=== PATIENT | female | born 1985 | race Caucasian/White ===

== ENCOUNTER 2017-08-15 00:21 | Emergency (ER) | payer SELFPAY ==
--- NOTE | 2017-08-15 02:41 | ER ---
Nurse's Notes [facility] Name: Araceli Bledsoe Age: 32 yrs Sex: Female : 1985 Arrival Date: 08/15/2017 Time: 00:22 Bed 28 Private MD: Garrett Lechuga T Diagnosis: Acute pharyngitis Presentation: 08/15 00:59 Presenting complaint: Patient states: Sore Throat, difficulty swallowing x 3 days. fc Began taking Zithromax yesterday after seeing physician and being diagnosed with strep throat. Sore throat continues to worsen. Transition of care: patient was not received from another setting of care. Onset of symptoms. Onset of symptoms was August 12, 2017. Risk Assessment: Do you want to hurt yourself or someone else? Patient reports no desire to harm self or others. Initial Sepsis Screen: Does the patient meet any 2 criteria? No. Patient's initial sepsis screen is negative. Care prior to arrival: Medication(s) given: Motrin, 800 mg. 00:59 Method Of Arrival: Ambulatory fc 00:59 Acuity: BRITTNI 4 fc 03:01 Initial Sepsis Screen: Does the patient have a suspected source of infection? No. eb1 Patient's initial sepsis screen is negative. Triage Assessment: 01:03 General: Appears in no apparent distress. Behavior is calm, cooperative. Pain: fc Complains of pain in uvula, left aspect of posterior pharynx and right aspect of posterior pharynx Pain does not radiate. Pain currently is 9 out of 10 on a pain scale. EENT: Reports pain in uvula, left aspect of posterior pharynx and right aspect of posterior pharynx. 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 - Social history:: Smoking status: Patient uses tobacco products, denies chronic smoking, but will smoke occasionally. - Ebola Screening: : Patient negative for fever greater than or equal to 101.5 degrees Fahrenheit, and additional compatible Ebola Virus Disease symptoms. Screenin:22 Abuse screen: Denies threats or abuse. eb1 00:22 Nutritional screening: No deficits noted. Tuberculosis screening: No symptoms or risk eb1 factors identified. Fall Risk None identified. Assessment: 02:21 General: Appears in no apparent distress. well groomed, well developed, well nourished, eb1 Behavior is calm, cooperative, appropriate for age. Pain: Complains of pain in neck, throat and ears Pain at worst was 9 out of 10 on a pain scale. Quality of pain is described as burning, sharp, Pain began 2-3 days ago. Aggravated by eating, drinking, Current management is with Tylenol, is ineffective. Neuro: No deficits noted. Cardiovascular: No deficits noted. Denies chest pain, Heart tones present Capillary refill < 3 seconds JVD is absent Patient's skin is warm and dry. Pulses are all present. Rhythm is sinus rhythm Chest pain is denied. Respiratory: No deficits noted. Reports cough that is non-productive, Airway is patent Respiratory effort is even, unlabored, Respiratory pattern is regular, symmetrical, Breath sounds are clear Onset: The symptoms/episode began/occurred today. GI: No deficits noted. EENT: Throat is reddened Reports decreased hearing in right ear and left ear since this morning ringing in left ear. Derm: No deficits noted. Skin is pink, warm \T\ dry. Musculoskeletal: No deficits noted. Vital Signs: 01:03 BP 142 / 94; Pulse 89; Resp 18; Temp 97.9; Pulse Ox 98% ; Weight 71.21 kg; Height 5 ft. fc 7 in. (170.18 cm); Pain 9/10; 02:30 BP 129 / 79 RA Sitting (auto/reg); Pulse 88 RA; Resp 20; Temp 99.1(TE); Pulse Ox 100% eb1 on R/A; 01:03 Body Mass Index 24.59 (71.21 kg, 170.18 cm) ED Course: 00:22 Patient arrived in ED. ds1 00:22 Patient has correct armband on for positive identification. Bed in low position. Call eb1 light in reach. 00:25 Garrett Lechuga MD is Private Physician. ds1 01:02 Triage completed. 02:20 Norm Andre MD is Attending Physician. [facility] 02:40 Garrett Lechuga MD is Referral Physician. papi 03:01 Arm band placed on. eb1 03:01 No provider procedures requiring assistance completed. Patient did not have IV access eb1 during this emergency room visit. Administered Medications: 02:45 Drug: Zithromax 500 mg Route: PO; eb1 02:57 Follow up: given at discharge eb1 02:45 Drug: [place] 10 mg-325 mg 1 tabs Route: PO; eb1 02:57 Follow up: given at discharge eb1 Intake: Outcome: 02:40 Discharge ordered by MD. turpin 03:01 Discharged to home ambulatory. eb1 03:01 Condition: good 03:01 Discharge instructions given to patient, Prescriptions given X 1. 03:02 Patient left the ED. eb1 Signatures: Norm Andre MD MD cha Chretien, Felicia, RN RN fc Sanford, Demi ds1 Luana Gross RN RN eb1
--- NOTE | 2017-08-15 02:41 | EDPHYS ---
Physician Documentation [facility] Name: Araceli Bledsoe Age: 32 yrs Sex: Female : 1985 Arrival Date: 08/15/2017 Time: 00:22 Bed 28 Private MD: Garrett Lechuga T ED Physician Norm Andre HPI: 08/15 02:37 This 32 yrs old Female presents to ER via Ambulatory with complaints of Sore papi Throat. 02:37 This 32 yrs old Female presents to ER via Ambulatory with complaints of Sore papi Throat. 02:37 The patient presents with sore throat. The patient describes throat pain as burning, papi constant. Onset: The symptoms/episode began/occurred 2 day(s) ago. Severity of symptoms: At their worst the symptoms were mild, moderate, in the emergency department the symptoms are unchanged. Modifying factors: The symptoms are alleviated by nothing, the symptoms are aggravated by fluids, swallowing. Associated signs and symptoms: The patient has no apparent associated signs or symptoms. 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 - Social history:: Smoking status: Patient uses tobacco products, denies chronic smoking, but will smoke occasionally. - Ebola Screening: : Patient negative for fever greater than or equal to 101.5 degrees Fahrenheit, and additional compatible Ebola Virus Disease symptoms. ROS: 02:38 Constitutional: Negative for fever, chills, and weight loss, Eyes: Negative for injury, papi pain, redness, and discharge, Neck: Negative for injury, pain, and swelling, Cardiovascular: Negative for chest pain, palpitations, and edema, Respiratory: Negative for shortness of breath, cough, wheezing, and pleuritic chest pain, Abdomen/GI: Negative for abdominal pain, nausea, vomiting, diarrhea, and constipation, Back: Negative for injury and pain, : Negative for injury, bleeding, discharge, and swelling, MS/Extremity: Negative for injury and deformity, Skin: Negative for injury, rash, and discoloration, Neuro: Negative for headache, weakness, numbness, tingling, and seizure, Psych: Negative for depression, anxiety, suicide ideation, homicidal ideation, and hallucinations, Allergy/Immunology: Negative for hives, rash, and allergies, Endocrine: Negative for neck swelling, polydipsia, polyuria, polyphagia, and marked weight changes, Hematologic/Lymphatic: Negative for swollen nodes, abnormal bleeding, and unusual bruising. 02:38 ENT: Positive for sore throat. Exam: 02:38 Constitutional: This is a well developed, well nourished patient who is awake, alert, papi and in no acute distress. Head/Face: Normocephalic, atraumatic. Eyes: Pupils equal round and reactive to light, extra-ocular motions intact. Lids and lashes normal. Conjunctiva and sclera are non-icteric and not injected. Cornea within normal limits. Periorbital areas with no swelling, redness, or edema. Neck: Trachea midline, no thyromegaly or masses palpated, and no cervical lymphadenopathy. Supple, full range of motion without nuchal rigidity, or vertebral point tenderness. No Meningismus. Chest/axilla: Normal chest wall appearance and motion. Nontender with no deformity. No lesions are appreciated. Cardiovascular: Regular rate and rhythm with a normal S1 and S2. No gallops, murmurs, or rubs. Normal PMI, no JVD. No pulse deficits. Respiratory: Lungs have equal breath sounds bilaterally, clear to auscultation and percussion. No rales, rhonchi or wheezes noted. No increased work of breathing, no retractions or nasal flaring. Abdomen/GI: Soft, non-tender, with normal bowel sounds. No distension or tympany. No guarding or rebound. No evidence of tenderness throughout. Back: No spinal tenderness. No costovertebral tenderness. Full range of motion. Female : Normal external genitalia. Skin: Warm, dry with normal turgor. Normal color with no rashes, no lesions, and no evidence of cellulitis. MS/ Extremity: Pulses equal, no cyanosis. Neurovascular intact. Full, normal range of motion. Neuro: Awake and alert, GCS 15, oriented to person, place, time, and situation. Cranial nerves II-XII grossly intact. Motor strength 5/5 in all extremities. Sensory grossly intact. Cerebellar exam normal. Normal gait. Psych: Awake, alert, with orientation to person, place and time. Behavior, mood, and affect are within normal limits. 02:38 ENT: Posterior pharynx: Airway: normal, Tonsils: with erythema, Uvula: normal, swelling, that is mild, erythema, exudate, is not appreciated, peritonsillar mass, is not appreciated, pooling of secretions, is not appreciated. Vital Signs: 01:03 BP 142 / 94; Pulse 89; Resp 18; Temp 97.9; Pulse Ox 98% ; Weight 71.21 kg; Height 5 ft. fc 7 in. (170.18 cm); Pain 9/10; 02:30 BP 129 / 79 RA Sitting (auto/reg); Pulse 88 RA; Resp 20; Temp 99.1(TE); Pulse Ox 100% eb1 on R/A; 01:03 Body Mass Index 24.59 (71.21 kg, 170.18 cm) fc MDM: 02:[address] [facility] 02:39 Data reviewed: vital signs, nurses notes. [facility] Administered Medications: 02:45 Drug: Zithromax 500 mg Route: PO; eb1 02:57 Follow up: given at discharge eb1 02:45 Drug: [place] 10 mg-325 mg 1 tabs Route: PO; eb1 02:57 Follow up: given at discharge eb1 Disposition: 08/15/17 02:40 Discharged to Home. Impression: Acute pharyngitis. - Condition is Stable. - Discharge Instructions: Pharyngitis, Pharyngitis, [id number], Sore Throat, [id number]. - Prescriptions for Zithromax Z- [place] 250 mg Oral Tablet - take 1 tablet by ORAL route once daily for 3 days; 3 tablet. - Medication Reconciliation Form, Thank You Letter, Antibiotic Education, Prescription Opioid Use form. - Follow up: Garrett Lechuga MD; When: 2 - 3 days; Reason: Recheck today's complaints, Continuance of care, Re-evaluation by your physician. - Problem is new. - Symptoms have improved. Signatures: Norm Andre MD MD cha Chretien, Felicia RN RN Luana Gross RN RN eb1 Corrections: (The following items were deleted from the chart) 03:02 02:40 08/15/2017 02:40 Discharged to Home. Impression: Acute pharyngitis. Condition is eb1 Stable. Forms are Medication Reconciliation Form, Thank You Letter, Antibiotic Education, Prescription Opioid Use. Follow up: Garrett Lechuga; When: 2 - 3 days; Reason: Recheck today's complaints, Continuance of care, Re-evaluation by your physician. Problem is new. Symptoms have improved. papi
[2017-08-15] MEDS ORDERED: AZITHROMYCIN 250 MG TAB ONE (02:43)
[2017-08-15] MEDS ORDERED: HYDROCODONE/APAP 10/325 TAB ONE (02:43)
[2017-08-15 03:07] VITALS: BP 129/79; TEMP 99.1; O2SAT 100
== END 2017-08-15 03:02 | disposition home or self-care (01) ==
LOC: ER 00:21
DX: J02.9 Acute pharyngitis, unspecified (principal); Z88.1 Allergy status to other antibiotic agents; F17.220 Nicotine dependence, chewing tobacco, uncomplicated
CPT/HCPCS: 99284

== ENCOUNTER 2017-10-03 03:33 | Emergency (ER) | payer SELFPAY ==
[2017-10-03] MEDS ORDERED: LIDOCAINE VISCOUS 2% SOLN 15 ML UDC ONE (04:04)
[2017-10-03] MEDS ORDERED: FAMOTIDINE 20 MG/2 ML VIAL IV ONE (04:04)
[2017-10-03] MEDS ORDERED: MAGNE/ALUM HYDROXD 30 ML UCUP ONE (04:04)
[2017-10-03] MEDS ORDERED: NA CHLORIDE 0.9% 1,000 ML ONE (04:04)
[2017-10-03 04:34] LABS: Absolute Lymphocytes (CBC) 2.4 K/uL (0.7-4.9); Absolute Monocytes 0.7 K/uL (0.1-1.3); Absolute Neutrophil 4.1 K/uL (1.8-8.0); Basophils % 0.7 % (0-1.3); Eosinophils % 1.6 % (0-4.4); Hematocrit 37.6 % (36.0-45.0); Lymphocytes % 32.7 % (15.3-44.8); MCH 32.3 pg (27.0-35.0); MCV 93.8 fL (80-100); MPV 9.8 fL (7.6-11.3); Monocytes % 9.2 % (3.3-12.3)
[2017-10-03 04:56] LABS: Urine Blood NEGATIVE (NEG); Urine Glucose NEGATIVE (NEG); Urine Protein NEGATIVE (NEG); Urine pH 5.5 (5.0-7.0)
[2017-10-03 04:57] LABS: ALT/SGPT 20 U/L (12-78); AST/SGOT 14 U/L (15-37); Alkaline Phosphatase 55 U/L (45-117); BUN Blood Urea Nitrogen 9 mg/dL (7-18); Bicarbonate 28 mmol/L (21-32); Bilirubin Direct < 0.1 mg/dL (0-0.2); Bilirubin Total 0.3 mg/dL (0.2-1.0); Glucose Level 82 mg/dL (74-106); Lipase 150 U/L (73-393); Potassium 3.6 mmol/L (3.5-5.1); Protein, Total 7.3 g/dL (6.4-8.2); Sodium Level 142 mmol/L (136-145)
[2017-10-03 05:01] LABS: Urine Bacteria 20-50 /HPF (<20); Urine Culture Reflex Order NOT NEEDED; Urine RBC NONE SEEN /HPF (NONE SEEN)
--- NOTE | 2017-10-03 05:13 | ER ---
Nurse's Notes [facility] Name: Araceli Bledsoe Age: 32 yrs Sex: Female : 1985 Arrival Date: 10/03/2017 Time: 03:37 Bed 14 Private MD: Garrett Lechuga T Diagnosis: Gastritis, unspecified, without bleeding Presentation: 10/03 03:43 Presenting complaint: Patient states: she is having really bad epigastric pain bb stabbing, burning starting last night, she is scheduled for procedure with Dr Lb for acid reflux which she has had for the last month but pain is too bad to wait has nausea but denies vomiting, diarrhea or fever. Transition of care: patient was not received from another setting of care. Onset of symptoms was September 05, 2017. Risk Assessment: Do you want to hurt yourself or someone else? Patient reports no desire to harm self or others. Initial Sepsis Screen: Does the patient meet any 2 criteria? No. Patient's initial sepsis screen is negative. Does the patient have a suspected source of infection? No. Patient's initial sepsis screen is negative. Care prior to arrival: None. 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 - Social history:: Smoking status: Patient/guardian denies using tobacco, Patient uses street drugs, marijuana, Patient/guardian denies using alcohol. - Ebola Screening: : No symptoms or risks identified at this time. - Family history:: not pertinent. - Hospitalizations: : No recent hospitalization is reported. Screenin:28 Abuse screen: Denies threats or abuse. Denies injuries from another. Nutritional bp screening: No deficits noted. Tuberculosis screening: No symptoms or risk factors identified. Fall Risk None identified. Assessment: 04:00 General: Appears in no apparent distress. uncomfortable, slender, Behavior is calm, bp cooperative, appropriate for age. Pain: Complains of pain in epigastric area. Neuro: Level of Consciousness is awake, alert, obeys commands, Oriented to person, place, time, situation, Appropriate for age. Cardiovascular: No deficits noted. Respiratory: Airway is patent Respiratory effort is even, unlabored, Respiratory pattern is regular, symmetrical. GI: Bowel sounds present X 4 quads. Abd is soft X 4 quads. : No signs and/or symptoms were reported regarding the genitourinary system. EENT: No deficits noted. Derm: No deficits noted. Musculoskeletal: Circulation, motion, and sensation intact. Range of motion: intact in all extremities. 05:30 Reassessment: PT D/C HOME AMBULATORY WITH FAMILY, DX WITH GASTRITIS. bp Vital Signs: 03:47 BP 141 / 96; Pulse 117; Resp 18 S; Temp 99.2(O); Pulse Ox 100% on R/A; Weight 68.04 kg bb (R); Height 5 ft. 7 in. (170.18 cm) (R); Pain 10/10; 04:30 BP 102 / 71; Pulse 63; Resp 16; Pulse Ox 100% ; bp 05:30 BP 107 / 75; Pulse 71; Resp 16; Pulse Ox 100% ; bp 03:47 Body Mass Index 23.49 (68.04 kg, 170.18 cm) bb ED Course: 03:37 Patient arrived in ED. es 03:37 Garrett Lechuga MD is Private Physician. es 03:40 Aditya Lopez MD is Attending Physician. rn 03:46 Triage completed. bb 03:47 Arm band placed on Patient placed in an exam room, on a stretcher, on pulse oximetry. bb Family accompanied patient. 03:56 Martell Sanches, TONA is Primary Nurse. bp 04:00 Patient has correct armband on for positive identification. Bed in low position. Call bp light in reach. Side rails up X2. Adult w/ patient. 04:00 Inserted saline lock: 20 gauge in right antecubital area, using aseptic technique. bp Blood collected. 05:12 Robert Morales MD is Referral Physician. rn 05:31 No provider procedures requiring assistance completed. IV discontinued, intact, bp bleeding controlled, No redness/swelling at site. Pressure dressing applied. Administered Medications: 04:00 Drug: GI Cocktail without - (Maalox Suspension 30 ml, Lidocaine Liquid 2 % 15 bp ml) Route: PO; 05:34 Follow up: Response: Marked relief of symptoms bp 04:00 Drug: Pepcid 20 mg Route: IVP; Site: right antecubital; bp 05:34 Follow up: Response: Marked relief of symptoms bp 04:00 Drug: NS 0.9% 1000 ml Route: IV; Rate: 1000 ml; Site: right antecubital; bp 05:33 Follow up: IV Status: Completed infusion; IV Intake: 1000ml bp Intake: 05:33 IV: 1000ml; Total: 1000ml. bp Outcome: 05:12 Discharge ordered by . rn 05:32 Discharged to home ambulatory, with family. bp 05:32 Condition: stable 05:32 Discharge instructions given to patient, Instructed on discharge instructions, follow up and referral plans. Demonstrated understanding of instructions, follow-up care. 05:33 Patient left the ED. bp Signatures: Archana Arshad Brenda, RN RN bb Aditya Lopez MD MD rn Peltier, Brian, RN RN bp
--- NOTE | 2017-10-03 05:13 | EDPHYS ---
Physician Documentation [facility] Name: Araceli Bledsoe Age: 32 yrs Sex: Female : 1985 Arrival Date: 10/03/2017 Time: 03:37 Bed 14 Private MD: Garrett Lechuga T ED Physician Aditya Lopez HPI: 10/03 03:48 This 32 yrs old Female presents to ER via Ambulatory with complaints of rn Abdominal Pain. 03:48 The patient presents with abdominal pain in the epigastric area. Onset: The rn symptoms/episode began/occurred 1 month(s) ago. The symptoms do not radiate. Associated signs and symptoms: Pertinent positives: nausea, Pertinent negatives: blood in stools, diarrhea, dysuria, fever, shortness of breath, vaginal discharge, vomiting blood. The symptoms are described as burning. Modifying factors: The symptoms are alleviated by nothing, the symptoms are aggravated by food, touching the area. The patient has experienced similar episodes in the past. Reports epigastric abd pain for 1 month, has seen GI for it, told to take antacids, getting worse, worse with food and touching area, no radiation, has EGD scheduled in 2 weeks. . 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 - Social history:: Smoking status: Patient/guardian denies using tobacco, Patient uses street drugs, marijuana, Patient/guardian denies using alcohol. - Ebola Screening: : No symptoms or risks identified at this time. - Family history:: not pertinent. - Hospitalizations: : No recent hospitalization is reported. ROS: 03:48 Constitutional: Negative for fever, chills, and weight loss, Eyes: Negative for injury, rn pain, redness, and discharge, Cardiovascular: Negative for chest pain, palpitations, and edema, Respiratory: Negative for shortness of breath, cough, wheezing, and pleuritic chest pain, Abdomen/GI: + abd pain, + nausea, no vomiting/diarrhea MS/Extremity: Negative for injury and deformity, Skin: Negative for injury, rash, and discoloration, Neuro: Negative for headache, weakness, numbness, tingling, and seizure. Exam: 03:48 Constitutional: This is a well developed, well nourished patient who is awake, alert rn Head/Face: Normocephalic, atraumatic. Eyes: Pupils equal round and reactive to light, extra-ocular motions intact. Lids and lashes normal. Conjunctiva and sclera are non-icteric and not injected. Cornea within normal limits. Periorbital areas with no swelling, redness, or edema. ENT: MMM Abdomen/GI: soft, + mild epigastric tenderness, no reobund, neg thomas Skin: Warm, dry with normal turgor. Normal color with no rashes, no lesions, and no evidence of cellulitis. MS/ Extremity: Pulses equal, no cyanosis. Neurovascular intact. Full, normal range of motion. Equal circumference. Neuro: Awake and alert, GCS 15, oriented to person, place, time, and situation. Vital Signs: 03:47 BP 141 / 96; Pulse 117; Resp 18 S; Temp 99.2(O); Pulse Ox 100% on R/A; Weight 68.04 kg bb (R); Height 5 ft. 7 in. (170.18 cm) (R); Pain 10/10; 04:30 BP 102 / 71; Pulse 63; Resp 16; Pulse Ox 100% ; bp 05:30 BP 107 / 75; Pulse 71; Resp 16; Pulse Ox 100% ; bp 03:47 Body Mass Index 23.49 (68.04 kg, 170.18 cm) bb MDM: 03:40 Patient medically screened. rn 05:11 Differential diagnosis: cholecystitis, Cholelithiasis, gastritis, gastroesophageal rn reflux disease, non-specific abd pain, pancreatitis. Data reviewed: vital signs, nurses notes, lab test result(s), and as a result, I will discharge patient. Counseling: I had a detailed discussion with the patient and/or guardian regarding: the historical points, exam findings, and any diagnostic results supporting the discharge/admit diagnosis, lab results, the need for outpatient follow up, to return to the emergency department if symptoms worsen or persist or if there are any questions or concerns that arise at home. Response to treatment: the patient's symptoms have markedly improved after treatment, and as a result, I will discharge patient. Special discussion: Based on the patient's Hx, exam, and Dx evaluation, there is no indication for emergent surgery or inpatient Tx. It is understood by the patient/guardian that if the Sx's persist or worsen they need to return immediately for re-evaluation. I discussed with the patient/guardian in detail that at this point there is no indication for admission to the hospital. It is understood, however, that if the symptoms persist or worsen the patient needs to return immediately for re-evaluation. ED course: Pain relieved within 10 min of GI cocktail, labs unremarkable, will dc home with prn maalox and cont her antacid meds, as well as outpt EGD as planned/scheduled.. 10/03 03:48 Order name: Basic Metabolic Panel; Complete Time: 05: rn 10/03 03:48 Order name: CBC with Diff; Complete Time: 05: rn 10/03 03:48 Order name: Creatinine for Radiology; Complete Time: 05: rn 10/03 03:48 Order name: Hepatic Function; Complete Time: 05: rn 10/03 03:48 Order name: Lipase; Complete Time: 05: rn 10/03 03:48 Order name: Urine Microscopic Only; Complete Time: 05: rn 10/03 03:48 Order name: Urine Test (obtain specimen); Complete Time: 04: rn 10/03 03:48 Order name: IV Saline Lock; Complete Time: 04: rn 10/03 03:48 Order name: Labs collected and sent; Complete Time: 04: rn 10/03 04:37 Order name: Urine Dipstick--Ancillary (enter results); Complete Time: 05: ms 10/03 04:37 Order name: Urine --Ancillary (enter results); Complete Time: 05: ms 10/03 03:48 Order name: Urine Dipstick-Ancillary (obtain specimen); Complete Time: 04:22 rn Administered Medications: 04:00 Drug: GI Cocktail without - (Maalox Suspension 30 ml, Lidocaine Liquid 2 % 15 bp ml) Route: PO; 05:34 Follow up: Response: Marked relief of symptoms bp 04:00 Drug: Pepcid 20 mg Route: IVP; Site: right antecubital; bp 05:34 Follow up: Response: Marked relief of symptoms bp 04:00 Drug: NS 0.9% 1000 ml Route: IV; Rate: 1000 ml; Site: right antecubital; bp 05:33 Follow up: IV Status: Completed infusion; IV Intake: 1000ml bp Disposition: 10/03/17 05:12 Discharged to Home. Impression: Gastritis, unspecified, without bleeding. - Condition is Stable. - Discharge Instructions: Gastritis, Adult. - Medication Reconciliation Form, Thank You Letter, Antibiotic Education, Prescription Opioid Use form. - Follow up: Robert Morales MD; When: As needed; Reason: Recheck today's complaints, Re-evaluation by your physician. - Problem is new. - Symptoms have improved. Signatures: Dispatcher [employer] EDRyanne Mireles RN RN Aditya Lopez MD MD rn Peltier, Brian, RN RN bp Corrections: (The following items were deleted from the chart) 05:33 05:12 10/03/2017 05:12 Discharged to Home. Impression: Gastritis, unspecified, without bp bleeding. Condition is Stable. Forms are Medication Reconciliation Form, Thank You Letter, Antibiotic Education, Prescription Opioid Use. Follow up: Robert Morales; When: As needed; Reason: Recheck today's complaints, Re-evaluation by your physician. Problem is new. Symptoms have improved. rn
[2017-10-03 05:37] VITALS: TEMP 99.2; O2SAT 100
[2017-10-03 05:39] VITALS: BP 107/75
== END 2017-10-03 05:33 | disposition home or self-care (01) ==
LOC: ER 03:33
DX: K29.70 Gastritis, unspecified, without bleeding (principal); Z88.0 Allergy status to penicillin
CPT/HCPCS: 36415; 80048; 80076; 81003; 81015; 81025; 83690; 85025; 96361; 96374; 99284; J7030

== ENCOUNTER 2017-12-18 13:14 | Emergency (ER) | payer SELFPAY ==
[2017-12-18] MEDS ORDERED: NA CHLORIDE 0.9% 1,000 ML ONE (13:43)
[2017-12-18] MEDS ORDERED: ONDANSETRON 4 MG/2 ML VIAL ONE (13:43)
[2017-12-18 14:02] LABS: Absolute Lymphocytes (CBC) 0.3 K/uL (0.7-4.9); Absolute Monocytes 0.5 K/uL (0.1-1.3); Absolute Neutrophil 11.8 K/uL (1.8-8.0); Basophils % 0.3 % (0-1.3); Eosinophils % 0.3 % (0-4.4); Hematocrit 43.2 % (36.0-45.0); Lymphocytes % 2.3 % (15.3-44.8); MCH 31.6 pg (27.0-35.0); MCV 92.9 fL (80-100); MPV 9.2 fL (7.6-11.3); Monocytes % 3.8 % (3.3-12.3); RBC Red Blood Cell Count 4.65 M/uL (3.86-4.86)
[2017-12-18 14:16] LABS: ALT/SGPT 19 U/L (12-78); AST/SGOT 15 U/L (15-37); Alkaline Phosphatase 55 U/L (45-117); BUN Blood Urea Nitrogen 10 mg/dL (7-18); Bicarbonate 27 mmol/L (21-32); Bilirubin Direct 0.2 mg/dL (0-0.2); Bilirubin Total 0.7 mg/dL (0.2-1.0); Glucose Level 102 mg/dL (74-106); Lipase 242 U/L (73-393); Potassium 3.9 mmol/L (3.5-5.1); Protein, Total 7.6 g/dL (6.4-8.2); Sodium Level 141 mmol/L (136-145)
--- NOTE | 2017-12-18 15:44 | RAD REPORT ---
EXAM DESCRIPTION: CT - Abdomen Pelvis W Contrast - 12/18/2017 3:18 pm CLINICAL HISTORY: Abdominal pain, nausea, diarrhea COMPARISON: CT study July 2014 TECHNIQUE: Biphasic, helical CT imaging of the abdomen and pelvis was performed following 100 ml non -ionic IV contrast. Oral contrast was given. All CT scans are performed using dose optimization technique as appropriate and may include automated exposure control or mA/KV adjustment according to patient size. FINDINGS: No suspicious findings in the lung bases. The liver, spleen, and pancreas show no suspicious findings. Gallbladder and biliary tree are also wi thout suspicious finding. Symmetric renal function is seen with no hydronephrosis or suspicious renal mass. No pyelonephritis o r acute renal parenchymal process. No acute uterine finding. No suspicious ovarian process. There is a small involuting cyst noted on the right ovary. Physiologic quantity of free fluid is present in th e cul-de-sac. No dilated bowel loops or bowel wall thickening. Fluid-filled stomach present. No appendicitis. Flu f ew fluid-filled small bowel loops are present. No abnormal mesenteric lymph node pattern. No free air , free fluid or inflammatory stranding. No hernia, mass or bulky lymphadenopathy. No adrenal abnorma lity. No suspicious bony findings. IMPRESSION: No appendicitis or other emergent finding. Stomach and small bowel findings would be co nsistent with enteritis. Small involuting right ovarian cyst. No suspicious PRESS TOOL MAKER or process.
--- NOTE | 2017-12-18 15:46 | ER ---
Nurse's Notes [facility] Name: Araceli Bledsoe Age: 32 yrs Sex: Female : 1985 Arrival Date: 12/18/2017 Time: 13:17 Bed 17 Private MD: Garrett Lechuga T Diagnosis: Nausea;Generalized abdominal pain Presentation: 12/18 13:28 Presenting complaint: Patient states: Nausea and Diarrhea since this AM with aj generalized abdominal pain. Transition of care: patient was not received from another setting of care. Onset of symptoms was December 18, 2017. Risk Assessment: Do you want to hurt yourself or someone else? Patient reports no desire to harm self or others. Initial Sepsis Screen: Does the patient meet any 2 criteria? No. Patient's initial sepsis screen is negative. Does the patient have a suspected source of infection? No. Patient's initial sepsis screen is negative. Care prior to arrival: None. 13:28 Method Of Arrival: Ambulatory aj 13:28 Acuity: BRITTNI 3 aj Triage Assessment: 13:29 General: Appears in no apparent distress. uncomfortable, Behavior is calm, cooperative, aj appropriate for age. Pain: Complains of pain in abdomen. Neuro: Level of Consciousness is awake, alert, obeys commands, Oriented to person, place, time, situation, Appropriate for age. Respiratory: Airway is patent Respiratory effort is even, unlabored, Respiratory pattern is regular, symmetrical. GI: Reports lower abdominal pain, upper abdominal pain, diarrhea, nausea, vomiting. Derm: Skin is intact, is healthy with good turgor, Skin is pink, warm \T\ dry. normal. 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 - Social history:: Smoking status: Patient/guardian denies using tobacco, Patient uses street drugs, marijuana. - Ebola Screening: : Patient negative for fever greater than or equal to 101.5 degrees Fahrenheit, and additional compatible Ebola Virus Disease symptoms Patient denies exposure to infectious person Patient denies travel to an Ebola-affected area in the 21 days before illness onset No symptoms or risks identified at this time. Screenin:59 Abuse screen: Denies threats or abuse. Nutritional screening: No deficits noted. em Tuberculosis screening: No symptoms or risk factors identified. Fall Risk None identified. Assessment: 13:45 General: Appears in no apparent distress. uncomfortable, Behavior is calm, cooperative, em Denies fever. Pain: Complains of pain in right lower quadrant and left lower quadrant. Neuro: Level of Consciousness is awake, alert, obeys commands, Oriented to person, place, time, situation, Reports dizziness. Cardiovascular: Capillary refill < 3 seconds Patient's skin is warm and dry. Respiratory: Airway is patent Respiratory effort is even, unlabored, Respiratory pattern is regular, symmetrical. GI: Abdomen is flat, Bowel sounds present X 4 quads. Abd is soft X 4 quads Abdomen is tender to palpation X 4 quads. Reports constipation, nausea. : Urine is clear. EENT: No signs and/or symptoms were reported regarding the EENT system. Derm: Skin is intact, Skin is pink, warm \T\ dry. Musculoskeletal: Range of motion: intact in all extremities. 13:52 General: The previous assessment is accurate, call light remains within reach. . ss 14:36 Reassessment: Patient appears in no apparent distress at this time. Patient and/or em family updated on plan of care and expected duration. Pain level reassessed. Patient is alert, oriented x 3, equal unlabored respirations, skin warm/dry/pink. Patient denies pain at this time. Patient states feeling better. 15:30 Reassessment: Patient appears in no apparent distress at this time. Patient and/or em family updated on plan of care and expected duration. Pain level reassessed. Patient is alert, oriented x 3, equal unlabored respirations, skin warm/dry/pink. Patient denies pain at this time. Patient states feeling better. Patient states symptoms have improved. Vital Signs: 13:29 BP 130 / 82; Pulse 96; Resp 22; Temp 97.9; Pulse Ox 100% on R/A; Weight 65.32 kg; aj Height 5 ft. 7 in. (170.18 cm); 14:36 BP 103 / 68; Pulse 73; Resp 18; Pulse Ox 99% on R/A; Pain 0/10; em 13:29 Body Mass Index 22.55 (65.32 kg, 170.18 cm) aj ED Course: 13:17 Patient arrived in ED. mr 13:17 Garrett Lechuga MD is Private Physician. mr 13:29 Triage completed. aj 13:29 Arm band placed on left wrist. Patient placed in an exam room. aj 13:31 [facility]C [facility] kb 13:31 Ayo Almonte MD is Attending Physician. kb 13:34 Isael Barrera LVN is Primary Nurse. em 13:50 No provider procedures requiring assistance completed. Initial lab(s) drawn, by me, em sent to lab. Urine collected: clean catch specimen, clear. Inserted saline lock: 20 gauge in right antecubital area, using aseptic technique. Blood collected. 13:59 Patient has correct armband on for positive identification. Bed in low position. Call em light in reach. Side rails up X2. Adult w/ patient. 15:08 Note: NEG UPT PER ER MICHELLE GOTTI. kw1 15:18 CT completed. Patient tolerated procedure well. Patient moved to CT via wheelchair. kw1 Patient moved back from CT. 15:18 CT Abd/Pelvis - W/Contrast In Process Unspecified. EDMS 15:45 IV discontinued, intact, bleeding controlled, No redness/swelling at site. Pressure em dressing applied. Administered Medications: 13:58 Drug: NS 0.9% 1000 ml Route: IV; Rate: 1000 ml; Site: right antecubital; em 14:32 Follow up: IV Status: Completed infusion; IV Intake: 1000ml em 13:58 Drug: Zofran 4 mg Route: IVP; Site: right antecubital; jl7 14:32 Follow up: Response: No adverse reaction; Marked relief of symptoms em Intake: 14:32 IV: 1000ml; Total: 1000ml. em Outcome: 15:45 Discharge ordered by . kb 16:04 Discharged to home ambulatory. em 16:04 Condition: good 16:04 Discharge instructions given to patient, Instructed on discharge instructions, follow up and referral plans. medication usage, Demonstrated understanding of instructions, follow-up care, medications, Prescriptions given X 2. 16:05 Patient left the ED. em Signatures: Dispatcher [employer] EDMS Karlee Keita FNP-C LAWN MOWER MECHANIC-Ckb Adina Schulz, RN RN Ludmila Parham mr Isael Barrera, DESIGN LEAD DESIGN LEAD Monika Montoya, RN RN ss Abrahan Bond RN RN jl7 Meghan Martinez [facility]
--- NOTE | 2017-12-18 15:46 | EDPHYS ---
Physician Documentation [facility] Name: Araceli Bledsoe Age: 32 yrs Sex: Female : 1985 Arrival Date: 12/18/2017 Time: 13:17 Bed 17 Private MD: Garrett Lechuga T ED Physician Ayo Almonte HPI: 12/18 13:58 This 32 yrs old Female presents to ER via Ambulatory with complaints of kb Dizziness, Nausea. 13:58 The patient presents to the emergency department with nausea, that is moderate, kb abdominal pain, described as constant, pressure, "sickly pain". Onset: The symptoms/episode began/occurred just prior to arrival. Possible causes: unknown. The symptoms are aggravated by nothing. The symptoms are alleviated by nothing. Associated signs and symptoms: Pertinent positives: nausea, soft stool. Severity of symptoms: At their worst the symptoms were moderate in the emergency department the symptoms are unchanged. The patient has not experienced similar symptoms in the past. The patient has not recently seen a physician. 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 - Social history:: Smoking status: Patient/guardian denies using tobacco, Patient uses street drugs, marijuana. - Ebola Screening: : Patient negative for fever greater than or equal to 101.5 degrees Fahrenheit, and additional compatible Ebola Virus Disease symptoms Patient denies exposure to infectious person Patient denies travel to an Ebola-affected area in the 21 days before illness onset No symptoms or risks identified at this time. ROS: 13:57 Constitutional: Negative for fever, chills, and weight loss, Cardiovascular: Negative kb for chest pain, palpitations, and edema, Respiratory: Negative for shortness of breath, cough, wheezing, and pleuritic chest pain, Back: Negative for injury and pain, : Negative for injury, bleeding, discharge, and swelling, MS/Extremity: Negative for injury and deformity, Skin: Negative for injury, rash, and discoloration, Neuro: Negative for headache, weakness, numbness, tingling, and seizure. +dizziness 13:57 Abdomen/GI: Positive for abdominal pain, nausea, Negative for vomiting, diarrhea, constipation, abdominal cramps, abdominal distension, anorexia. Exam: 13:57 Constitutional: This is a well developed, well nourished patient who is awake, alert, kb and in no acute distress. Head/Face: Normocephalic, atraumatic. Chest/axilla: Normal chest wall appearance and motion. Nontender with no deformity. No lesions are appreciated. Cardiovascular: Regular rate and rhythm with a normal S1 and S2. No gallops, murmurs, or rubs. Normal PMI, no JVD. No pulse deficits. Respiratory: Lungs have equal breath sounds bilaterally, clear to auscultation and percussion. No rales, rhonchi or wheezes noted. No increased work of breathing, no retractions or nasal flaring. Abdomen/GI: Soft, non-tender, with normal bowel sounds. No distension or tympany. No guarding or rebound. No evidence of tenderness throughout. Back: No spinal tenderness. No costovertebral tenderness. Full range of motion. Skin: Warm, dry with normal turgor. Normal color with no rashes, no lesions, and no evidence of cellulitis. MS/ Extremity: Pulses equal, no cyanosis. Neurovascular intact. Full, normal range of motion. Neuro: Awake and alert, GCS 15, oriented to person, place, time, and situation. Cranial nerves II-XII grossly intact. Motor strength 5/5 in all extremities. Sensory grossly intact. Cerebellar exam normal. Normal gait. Vital Signs: 13:29 BP 130 / 82; Pulse 96; Resp 22; Temp 97.9; Pulse Ox 100% on R/A; Weight 65.32 kg; aj Height 5 ft. 7 in. (170.18 cm); 14:36 BP 103 / 68; Pulse 73; Resp 18; Pulse Ox 99% on R/A; Pain 0/10; em 13:29 Body Mass Index 22.55 (65.32 kg, 170.18 cm) aj MDM: 13:31 Patient medically screened. kb 13:56 Data reviewed: vital signs, nurses notes. Data interpreted: Pulse oximetry: on room air kb is 100 %. Interpretation: normal. 15:45 Counseling: I had a detailed discussion with the patient and/or guardian regarding: the kb historical points, exam findings, and any diagnostic results supporting the discharge/admit diagnosis, lab results, radiology results, the need for outpatient follow up, a family practitioner, to return to the emergency department if symptoms worsen or persist or if there are any questions or concerns that arise at home. 12/18 13:31 Order name: Basic Metabolic Panel; Complete Time: 14:17 kb 12/18 13:31 Order name: CBC with Diff kb 12/18 13:31 Order name: Hepatic Function; Complete Time: 14:17 kb 12/18 13:31 Order name: Lipase; Complete Time: 14:17 kb 12/18 14:05 Order name: Urine Dipstick--Ancillary (enter results) eb 12/18 14:05 Order name: Urine --Ancillary (enter results) eb 12/18 13:31 Order name: IV Saline Lock; Complete Time: 13:58 kb 12/18 13:31 Order name: Labs collected and sent; Complete Time: 13:58 kb 12/18 13:31 Order name: Urine Dipstick-Ancillary (obtain specimen); Complete Time: 13:58 kb 12/18 14:13 Order name: CBC Smear Scan EDMS 12/18 14:17 Order name: CT Abd/Pelvis - W/Contrast; Complete Time: 15:44 kb 12/18 15:22 Order name: Diet Renal; Complete Time: 15:23 eb Administered Medications: 13:58 Drug: NS 0.9% 1000 ml Route: IV; Rate: 1000 ml; Site: right antecubital; em 14:32 Follow up: IV Status: Completed infusion; IV Intake: 1000ml em 13:58 Drug: Zofran 4 mg Route: IVP; Site: right antecubital; jl7 14:32 Follow up: Response: No adverse reaction; Marked relief of symptoms em Disposition: 17:36 Co-signature as Attending Physician, Ayo Almonte MD. Disposition: 12/18/17 15:45 Discharged to Home. Impression: Nausea, Generalized abdominal pain. - Condition is Stable. - Discharge Instructions: Nausea and Vomiting, Adult, [id number], Abdominal Pain, Adult, [id number]. - Prescriptions for Bentyl 20 mg Oral Tablet - take 1 tablet by ORAL route every 6 hours As needed; 20 tablet. Zofran 4 mg Oral Tablet - take 1 tablet by ORAL route every 6 hours As needed; 20 tablet. - Medication Reconciliation Form, Thank You Letter, Antibiotic Education, Prescription Opioid Use form. - Follow up: Emergency Department; When: As needed; Reason: Worsening of condition. Follow up: Private Physician; When: 2 - 3 days; Reason: Recheck today's complaints, Continuance of care, Re-evaluation by your physician. Signatures: Dispatcher [employer] EDKarlee Pedro, YUDITH-C SENIOR CONSUMER INSIGHTS CONSULTANT-CkAdina Sewell, RN RN Isael Branham, PROFESSIONAL BONDSMAN PROFESSIONAL BONDSMAN Abrahan Bullock RN RN jl7 Ayo Almonte MD MD gs Corrections: (The following items were deleted from the chart) 13:59 13:57 Constitutional: Negative for fever, chills, and weight loss, Cardiovascular: kb Negative for chest pain, palpitations, and edema, Respiratory: Negative for shortness of breath, cough, wheezing, and pleuritic chest pain, Back: Negative for injury and pain, : Negative for injury, bleeding, discharge, and swelling, MS/Extremity: Negative for injury and deformity, Skin: Negative for injury, rash, and discoloration, Neuro: Negative for headache, weakness, numbness, tingling, and seizure, kb 16:05 15:45 12/18/2017 15:45 Discharged to Home. Impression: Nausea; Generalized abdominal em pain. Condition is Stable. Forms are Medication Reconciliation Form, Thank You Letter, Antibiotic Education, Prescription Opioid Use. Follow up: Emergency Department; When: As needed; Reason: Worsening of condition. Follow up: Private Physician; When: 2 - 3 days; Reason: Recheck today's complaints, Continuance of care, Re-evaluation by your physician. kb
[2017-12-18 16:36] VITALS: TEMP 97.9
[2017-12-18 16:50] VITALS: BP 103/68; O2SAT 99
[2017-12-18 17:06] LABS: Blood Morphology Comment NOT SEEN (NOT SEEN); Platelet Estimate ADEQ; Urine White Blood Cell Casts OK
[2017-12-18 19:38] LABS: Urine Blood TRACE (NEG); Urine Glucose NEGATIVE (NEG); Urine Protein NEGATIVE (NEG); Urine Specific Gravity 1.025 (1.005-1.030)
== END 2017-12-18 16:05 | disposition home or self-care (01) ==
LOC: ER 13:14
DX: R10.84 Generalized abdominal pain (principal); Z88.0 Allergy status to penicillin; Z88.1 Allergy status to other antibiotic agents; Z88.5 Allergy status to narcotic agent
CPT/HCPCS: 36415; 74177; 80048; 80076; 81003; 81025; 83690; 85025; 96361; 96374; 99284; J2405; J7030; Q9967

== ENCOUNTER 2018-12-05 07:35 | Emergency (ER) | payer SELFPAY ==
[2018-12-05] MEDS ORDERED: IBUPROFEN 400 MG TAB ONE (21:14)
[2018-12-05] MEDS ORDERED: IBUPROFEN 200 MG TAB PO ONE (21:14)
--- NOTE | 2018-12-05 22:21 | ER ---
Nurse's Notes [facility] Name: Araceli Bledsoe Age: 33 yrs Sex: Female : 1985 Arrival Date: 12/05/2018 Time: 19:37 Bed 27 Private MD: Garrett Lechuga T Diagnosis: Concussion Presentation: 12/05 19:42 Presenting complaint: Patient states: Wednesday night she slipped and fell hitting her ak1 head on right side. pt c/o increased pain today with ears ringing. Transition of care: patient was not received from another setting of care. Mechanism of Injury: The problem was sustained at home, resulted from a fall, while running. Onset of symptoms was December 03, 2018. Risk Assessment: Do you want to hurt yourself or someone else? Patient reports no desire to harm self or others. Initial Sepsis Screen: Does the patient meet any 2 criteria? No. Patient's initial sepsis screen is negative. Does the patient have a suspected source of infection? No. Patient's initial sepsis screen is negative. Care prior to arrival: None. 19:42 Method Of Arrival: Ambulatory ak1 19:42 Acuity: BRITTNI 3 ak1 Triage Assessment: 19:46 General: Appears in no apparent distress. Behavior is calm, cooperative, appropriate ak1 for age. Neuro: Level of Consciousness is awake, alert, obeys commands, Oriented to person, place, time, situation, Appropriate for age Director Translation are equal bilaterally Moves all extremities. Gait is steady, Speech is normal, Reports headache in entire since Wednesday s/p slip and fall no LOC reported. 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 - Social history:: Smoking status: Patient/guardian denies using tobacco, Patient uses street drugs, marijuana. - Ebola Screening: : No symptoms or risks identified at this time. Screenin:45 Abuse screen: Denies threats or abuse. Denies injuries from another. Nutritional ak1 screening: No deficits noted. Tuberculosis screening: No symptoms or risk factors identified. Fall Risk None identified. Assessment: 19:45 Pain: Complains of pain in head. Neuro: Level of Consciousness is awake, alert, obeys ak1 commands, Oriented to person, place, time, situation, Appropriate for age Director Translation are equal bilaterally Moves all extremities. Gait is steady, Speech is normal, Facial symmetry appears normal. 20:50 Reassessment: Patient appears in no apparent distress at this time. Patient and/or ca1 family updated on plan of care and expected duration. Pain level reassessed. Reassessment: Patient appears in no apparent distress at this time. 22:15 Reassessment: Patient appears in no apparent distress at this time. Patient and/or ca1 family updated on plan of care and expected duration. Pain level reassessed. Patient is alert, oriented x 3, equal unlabored respirations, skin warm/dry/pink. Vital Signs: 19:44 BP 132 / 85; Pulse 74; Resp 16; Temp 98.4(O); Pulse Ox 100% on R/A; Weight 66.22 kg ak1 (R); Height 5 ft. 7 in. (170.18 cm) (R); Pain 7/10; 20:50 BP 130 / 83; Pulse 65; Resp 17 S; Pulse Ox 100% on R/A; ca1 21:43 BP 112 / 77; Pulse 66; Resp 17 S; Pulse Ox 100% on R/A; ca1 19:44 Body Mass Index 22.87 (66.22 kg, 170.18 cm) ak1 Yessi Coma Score: 19:42 Eye Response: spontaneous(4). Verbal Response: oriented(5). Motor Response: obeys ak1 commands(6). Total: 15. 21:01 Eye Response: spontaneous(4). Verbal Response: oriented(5). Motor Response: obeys jr8 commands(6). Total: 15. ED Course: 19:37 Patient arrived in ED. cl3 19:37 Garrett Lechuga MD is Private Physician. cl3 19:43 Triage completed. ak1 19:44 Arm band placed on Patient placed in waiting room, Patient notified of wait time. ak1 19:46 Patient has correct armband on for positive identification. ak1 20:21 Urine obtained. ak1 20:42 Acob, Ashanti, RN is Primary Nurse. ca1 20:44 Rosalino Hopper PA is PHCP. jr8 20:44 Alan Sutherland MD is Attending Physician. jr8 21:16 CT completed. Patient tolerated procedure well. Patient moved back from CT. mw3 21:17 Head Brain Wo Cont CT In Process Unspecified. EDMS 22:28 No provider procedures requiring assistance completed. Patient did not have IV access ca1 during this emergency room visit. Administered Medications: 21:16 Drug: Ibuprofen 600 mg Route: PO; ca1 22:14 Follow up: Response: No adverse reaction; Pain is decreased ca1 Outcome: 22:21 Discharge ordered by . jr8 22:28 Discharged to home ambulatory, with significant other. ca1 22:28 Condition: stable 22:28 Discharge instructions given to patient, Instructed on discharge instructions, follow up and referral plans. Demonstrated understanding of instructions, follow-up care. 22:29 Patient left the ED. ca1 Signatures: Dispatcher [employer] EDNV Rosalino Hopper PA PA jr8 Renae Vasquez RN RN ak1 Debbie Rosales mw3 Ashanti Wilkerson RN RN ca1 Mat Seals cl3
--- NOTE | 2018-12-05 22:21 | EDPHYS ---
Physician Documentation [facility] Name: Araceli Bledsoe Age: 33 yrs Sex: Female : 1985 Arrival Date: 12/05/2018 Time: 19:37 Bed 27 Private MD: Garrett Lechuga T ED Physician Alan Sutherland HPI: 12/05 21:01 This 33 yrs old Female presents to ER via Ambulatory with complaints of Head jr8 Injury-Adult. 21:01 The complaints affect the right side of the back of head and right temporal area. jr8 Context of injury: The problem was sustained at a park. Onset: The symptoms/episode began/occurred 2 day(s) ago. Associated signs and symptoms: Loss of consciousness: This patient did not experience any loss of consciousness. Pertinent positives: headache, Pertinent negatives: dazed, double vision, incontinence, nausea, neck pain, vomiting. Severity of symptoms: At their worst the symptoms were mild, earlier today, in the emergency department the symptoms are unchanged. The patient has not recently seen a physician. pt was at park walking dogs and tripped hitting left occipital area on concrete, denies LOC, reports that she has had a JUDGE since the fall and also has been more forgetful than normal lately. Denies photophobia, denies N/V.. 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 - Social history:: Smoking status: Patient/guardian denies using tobacco, Patient uses street drugs, marijuana. - Ebola Screening: : No symptoms or risks identified at this time. ROS: 21:01 Constitutional: Negative for fever, chills, and weight loss, Eyes: Negative for injury, jr8 pain, redness, and discharge, ENT: Negative for injury, pain, and discharge, Neck: Negative for injury, pain, and swelling, Cardiovascular: Negative for chest pain, palpitations, and edema, Respiratory: Negative for shortness of breath, cough, wheezing, and pleuritic chest pain, Abdomen/GI: Negative for abdominal pain, nausea, vomiting, diarrhea, and constipation, Back: Negative for injury and pain, : Negative for injury, bleeding, discharge, and swelling, MS/Extremity: Negative for injury and deformity, Skin: Negative for injury, rash, and discoloration. 21:01 Neuro: Positive for headache, Negative for altered mental status, dizziness, gait disturbance, loss of consciousness, numbness, seizure activity, syncope, tingling, tinnitus, visual changes, weakness, acute changes. Exam: 21:01 Constitutional: This is a well developed, well nourished patient who is awake, alert, jr8 and in no acute distress. Head/Face: Normocephalic, atraumatic. Eyes: Pupils equal round and reactive to light, extra-ocular motions intact. Lids and lashes normal. Conjunctiva and sclera are non-icteric and not injected. Cornea within normal limits. Periorbital areas with no swelling, redness, or edema. ENT: Nares patent. No nasal discharge, no septal abnormalities noted. Tympanic membranes are normal and external auditory canals are clear. Oropharynx with no redness, swelling, or masses, exudates, or evidence of obstruction, uvula midline. Mucous membranes moist. Neck: Trachea midline, no thyromegaly or masses palpated, and no cervical lymphadenopathy. Supple, full range of motion without nuchal rigidity, or vertebral point tenderness. No Meningismus. Chest/axilla: Normal chest wall appearance and motion. Nontender with no deformity. No lesions are appreciated. Cardiovascular: Regular rate and rhythm with a normal S1 and S2. No gallops, murmurs, or rubs. Normal PMI, no JVD. No pulse deficits. Respiratory: Lungs have equal breath sounds bilaterally, clear to auscultation and percussion. No rales, rhonchi or wheezes noted. No increased work of breathing, no retractions or nasal flaring. Abdomen/GI: Soft, non-tender, with normal bowel sounds. No distension or tympany. No guarding or rebound. No evidence of tenderness throughout. Back: No spinal tenderness. No costovertebral tenderness. Full range of motion. Skin: Warm, dry with normal turgor. Normal color with no rashes, no lesions, and no evidence of cellulitis. MS/ Extremity: Pulses equal, no cyanosis. Neurovascular intact. Full, normal range of motion. 21:01 Neuro: Orientation: is normal, Mentation: is normal, Memory: is normal, Cranial nerves: CN II- XII are normal as tested, Cerebellar function: is grossly normal, normal finger to nose testing, Motor: is normal, Sensation: is normal, Gait: not applicable Vital Signs: 19:44 BP 132 / 85; Pulse 74; Resp 16; Temp 98.4(O); Pulse Ox 100% on R/A; Weight 66.22 kg ak1 (R); Height 5 ft. 7 in. (170.18 cm) (R); Pain 7/10; 20:50 BP 130 / 83; Pulse 65; Resp 17 S; Pulse Ox 100% on R/A; ca1 21:43 BP 112 / 77; Pulse 66; Resp 17 S; Pulse Ox 100% on R/A; ca1 19:44 Body Mass Index 22.87 (66.22 kg, 170.18 cm) ak1 [place] Coma Score: 19:42 Eye Response: spontaneous(4). Verbal Response: oriented(5). Motor Response: obeys ak1 commands(6). Total: 15. 21:01 Eye Response: spontaneous(4). Verbal Response: oriented(5). Motor Response: obeys jr8 commands(6). Total: 15. MDM: 20:44 Patient medically screened. jr8 22:19 Data reviewed: vital signs, nurses notes, radiologic studies, and as a result, I will jr8 discharge patient. Data interpreted: Pulse oximetry: on room air is 100 %. Interpretation: normal. Counseling: I had a detailed discussion with the patient and/or guardian regarding: the historical points, exam findings, and any diagnostic results supporting the discharge/admit diagnosis, radiology results, the need for outpatient follow up, a family practitioner. Medication response: ibuprofen administration has improved the patient's pain. Response to treatment: the patient's symptoms have markedly improved after treatment. ED course: Pt states motrin helped greatly with headache. 12/05 20:57 Order name: Head Brain Wo Cont CT jr8 Administered Medications: 21:16 Drug: Ibuprofen 600 mg Route: PO; ca1 22:14 Follow up: Response: No adverse reaction; Pain is decreased ca1 Disposition: 12/06 06:54 Co-signature as Attending Physician, Alan Sutherland MD I agree with the assessment and tw4 plan of care. Disposition: 12/05/18 22:21 Discharged to Home. Impression: Concussion. - Condition is Stable. - Discharge Instructions: Head Injury, Adult. - Work release form, Medication Reconciliation Form, Thank You Letter form. - Problem is new. - Symptoms have improved. Signatures: Dispatcher [employer] EDMS Rosalino Hopper PA PA jr8 Renae Vasquez RN RN ak1 Alan Sutherland MD MD tw4 AcAshanti san RN RN ca1 Corrections: (The following items were deleted from the chart) 12/05 22:29 22:21 12/05/2018 22:21 Discharged to Home. Impression: Concussion. Condition is Stable. ca1 Forms are Medication Reconciliation Form, Thank You Letter, Antibiotic Education, Prescription Opioid Use. Problem is new. Symptoms have improved. jr8
[2018-12-05 23:39] VITALS: O2SAT 100
[2018-12-05 23:41] VITALS: BP 112/77
[2018-12-05 23:54] VITALS: TEMP 97.2
--- NOTE | 2018-12-06 10:29 | RAD REPORT ---
EXAM DESCRIPTION: Head Brain Wo Cont CLINICAL HISTORY: 33 years Female HEADACHE COMPARISON: None TECHNIQUE: Contiguous axial images of the brain were obtained without the administration of intraven ous contrast.This exam was performed according to our departmental dose-optimization program which in cludes use of Automated Exposure Control, adjustment of the mA and/or kV according to patient size an d/or use of iterative reconstruction technique. FINDINGS: Brain: No acute intracranial hemorrhage. No acute territorial infarct. No extra-axial hyun ection. No mass effect or herniation. Ventricles: Within normal limits in size. Globes and orbits: No acute abnormality. Bones: No acute osseous finding. Paranasal sinuses: Paranasal sinuses are clear. Mastoid air cells: Well pneumatized.. Soft tissues: Within normal limits IMPRESSION: No acute intracranial abnormality. Electronically signed by: Nigel Sandhu DO 12/05/2018 9:42 PM CDT Due to temporary technical issues with the PACS/Fluency reporting system, reports are being signed by the in house radiologist as a courtesy to ensure prompt reporting. The interpreting radiologist is f ully responsible for the content of the report.
== END 2018-12-05 22:29 | disposition home or self-care (01) ==
LOC: ER 19:34
DX: S06.0X0A Concussion without loss of consciousness, initial encounter (principal); W01.198A Fall on same level from slipping, tripping and stumbling with subsequent striking against other object, initial encounter; Y93.K1 Activity, walking an animal; Y92.830 Public park as the place of occurrence of the external cause; Z88.0 Allergy status to penicillin; Z88.1 Allergy status to other antibiotic agents; Z88.5 Allergy status to narcotic agent
CPT/HCPCS: 70450; 99284

== ENCOUNTER 2019-11-13 19:12 | Emergency (ER) | payer SELFPAY ==
[2019-11-13 20:31] LABS: Urine Blood NEGATIVE (NEG); Urine Glucose NEGATIVE (NEG); Urine Protein NEGATIVE (NEG); Urine pH 7.5 (5.0-7.0)
[2019-11-13 20:52] LABS: ALT/SGPT 28 U/L (12-78); AST/SGOT 18 U/L (15-37); Absolute Lymphocytes (CBC) 2.4 K/uL (0.7-4.9); Albumin 4.3 g/dL (3.4-5.0); Alkaline Phosphatase 54 U/L (45-117); BUN Blood Urea Nitrogen 14 mg/dL (7-18); Basophils % 0.6 % (0-1.3); Bicarbonate 28 mmol/L (21-32); Bilirubin Direct < 0.1 mg/dL (0-0.2); Bilirubin Total 0.3 mg/dL (0.2-1.0); Glucose Level 84 mg/dL (74-106); Hematocrit 40.4 % (36.0-45.0); Lipase 124 U/L (73-393); Lymphocytes % 28.8 % (15.3-44.8); MPV 9.5 fL (7.6-11.3); Potassium 3.6 mmol/L (3.5-5.1); Protein, Total 7.8 g/dL (6.4-8.2); RBC Red Blood Cell Count 4.34 M/uL (3.86-4.86); Sodium Level 141 mmol/L (136-145)
[2019-11-13] MEDS ORDERED: ONDANSETRON 4 MG/2 ML VIAL ONE (21:09)
[2019-11-13] MEDS ORDERED: MORPHINE 2 MG/ML SYR ONE (21:09)
--- NOTE | 2019-11-13 21:19 | RAD REPORT ---
EXAM DESCRIPTION: CT - Abdomen Pelvis W Contrast - 11/13/2019 9:05 pm CLINICAL HISTORY: Abdominal pain COMPARISON: 2014 TECHNIQUE: Computed axial tomography of the abdomen pelvis was obtained. 100 cc Isovue-300 was admin istered intravenously. Oral contrast was not requested which limits evaluation of bowel. All CT scans are performed using dose optimization technique as appropriate and may include automated exposure control or mA/KV adjustment according to patient size. FINDINGS: The liver, spleen, pancreas, adrenal and kidneys appear unremarkable. There is no evidence of diverticulitis. 2 centimeter left ovarian cyst with small amount free fluid Endometrial stripe appears prominent Cecum is mildly distended with stool measuring 7 centimeters Spondylolysis L5 IMPRESSION: 2 centimeter left ovarian cyst with small amount free fluid Endometrial stripe appears prominent. Followup pelvic ultrasound in approximately 6 weeks recommended for re-evaluation
[2019-11-13] MEDS ORDERED: KETOROLAC 30 MG/ML INJ ONE (21:51)
--- NOTE | 2019-11-13 22:09 | EDPHYS ---
Physician Documentation [facility] Name: Araceli Bledsoe Age: 34 yrs Sex: Female : 1985 Arrival Date: 11/13/2019 Time: 19:14 Bed 24 Private MD: ED Physician Alan Sutherland HPI: 11/12 20:09 This 34 yrs old Female presents to ER via Ambulatory with complaints of jmm pelvic pain. 20:09 The patient presents with pelvic pain. Onset: The symptoms/episode began/occurred jmm gradually, 1 week(s) ago. Modifying factors: The symptoms are alleviated by nothing, the symptoms are aggravated by nothing. Associated signs and symptoms: Pertinent positives: vaginal bleeding, Pertinent negatives: fever. This is a 34 year old female that presents to the ED with complaints of lower abdominal/pelvic pain for a week with pelvic cramping and dysuria. Patient denies fever, vomiting. LMP on the 8th of this month. . 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 - Social history:: Smoking status: Patient denies any tobacco usage or history of. Patient uses street drugs, marijuana, Patient/guardian denies using alcohol. ROS: 20:09 Constitutional: Negative for fever, chills, and weight loss, Cardiovascular: Negative jmm for chest pain, palpitations, and edema, Respiratory: Negative for shortness of breath, cough, wheezing, and pleuritic chest pain. 20:09 Abdomen/GI: Positive for abdominal pain. 20:09 All other systems are negative. Exam: 20:09 Constitutional: This is a well developed, well nourished patient who is awake, alert, jmm and in no acute distress. Head/Face: atraumatic. Eyes: EOMI, no conjunctival erythema appreciated ENT: Moist Mucus Membranes Neck: Trachea midline, Supple Chest/axilla: Normal chest wall appearance and motion. Cardiovascular: Regular rate and rhythm. No edema appreciated Respiratory: Normal respirations, no respiratory distress appreciated Abdomen/GI: Non distended, soft Back: Normal ROM Skin: General appearance color normal MS/ Extremity: Moves all extremities, no obvious deformities appreciated, no edema noted to the lower extremities Neuro: Awake and alert, normal gait Psych: Behavior is normal, Mood is normal, Patient is cooperative and pleasant Vital Signs: 19:29 BP 121 / 80; Pulse 85; Resp 17; Temp 98.6; Pulse Ox 99% ; Weight 67.59 kg; Height 5 ft. ll1 7 in. (170.18 cm); Pain 7/10; 20:38 BP 118 / 69; Pulse 55; Resp 12; Pulse Ox 100% on R/A; Pain 7/10; jd3 21:37 BP 105 / 66; Pulse 55; Pulse Ox 100% on R/A; jd3 19:29 Body Mass Index 23.34 (67.59 kg, 170.18 cm) ll1 MDM: 20:03 Patient medically screened. [facility] 22:07 Data reviewed: vital signs, nurses notes. Counseling: I had a detailed discussion with angela the patient and/or guardian regarding: the historical points, exam findings, and any diagnostic results supporting the discharge/admit diagnosis, radiology results, the need for outpatient follow up, to return to the emergency department if symptoms worsen or persist or if there are any questions or concerns that arise at home. ED course: Patient is alert and non toxic in appearance in the ED. Patient is advised to follow up with pcp and otherwise given strict return precautions. Patient understood and agrees with the plan of care. . 11/12 20:09 Order name: Basic Metabolic Panel; Complete Time: 20:54 [facility] 11/12 20:09 Order name: CBC with Diff; Complete Time: 20:54 [facility] 11/12 20:09 Order name: Hepatic Function; Complete Time: 20:54 [facility] 11/12 20:09 Order name: Lipase; Complete Time: 20:54 [facility] 11/12 20:12 Order name: Urine --Ancillary (enter results); Complete Time: 20:54 [facility] 11/12 20:12 Order name: Urine Dipstick--Ancillary (enter results); Complete Time: 20:54 [facility] 11/12 20:09 Order name: IV Saline Lock; Complete Time: 20:30 [facility] 11/12 20:09 Order name: Labs collected and sent; Complete Time: 20:30 [facility] 11/12 20:09 Order name: Urine Dipstick-Ancillary (obtain specimen); Complete Time: 20:09 [facility] 11/12 20:09 Order name: Urine Test (obtain specimen); Complete Time: 20: [facility] 11/12 20:09 Order name: CT Abd/Pelvis - IV Contrast Only; Complete Time: 21:35 [facility] Administered Medications: 21:19 Drug: morphine 2 mg Route: IVP; Site: left antecubital; jd3 21:39 Follow up: Response: No adverse reaction; Pain is decreased jd3 21:46 Follow up: Response: RASS: Alert and Calm (0) jd3 21:19 Drug: Zofran (Ondansetron) 4 mg Route: IVP; Site: left antecubital; jd3 21:38 Follow up: Response: Nausea is decreased jd3 21:46 Drug: Ketorolac 30 mg Route: IVP; Site: left antecubital; jd3 22:02 Follow up: Response: Pain is decreased jd3 Disposition: 11/13 06:50 Co-signature as Attending Physician, Alan Sutherland MD I agree with the assessment and tw4 plan of care. Disposition: 11/13/19 22:08 Discharged to Home. Impression: Other ovarian cysts, Urinary tract infection, site not specified. - Condition is Stable. - Discharge Instructions: Ovarian Cyst, Urinary Tract Infection, Adult. - Prescriptions for Ibuprofen 800 mg Oral Tablet - take 1 tablet by ORAL route every 12 hours As needed take with food; 20 tablet. - Medication Reconciliation Form, Thank You Letter, Antibiotic Education, Prescription Opioid Use form. - Follow up: Private Physician; When: 2 - 3 days; Reason: Recheck today's complaints, Continuance of care, Re-evaluation by your physician. Signatures: Dispatcher [employer] EDMS Prashant Quick PA PA [facility] Alex Reveles RN RN jd3 Alan Sutherland MD MD tw4 Danay Seals RN RN ll1 Corrections: (The following items were deleted from the chart) 11/12 22:08 22:08 11/13/2019 22:08 Discharged to Home. Impression: Other ovarian cysts. Condition [facility] is Stable. Forms are Medication Reconciliation Form, Thank You Letter, Antibiotic Education, Prescription Opioid Use. Follow up: Private Physician; When: 2 - 3 days; Reason: Recheck today's complaints, Continuance of care, Re-evaluation by your physician. angela 22:29 22:08 11/13/2019 22:08 Discharged to Home. Impression: Other ovarian cysts; Urinary jd3 tract infection, site not specified. Condition is Stable. Forms are Medication Reconciliation Form, Thank You Letter, Antibiotic Education, Prescription Opioid Use. Follow up: Private Physician; When: 2 - 3 days; Reason: Recheck today's complaints, Continuance of care, Re-evaluation by your physician. angela
--- NOTE | 2019-11-13 22:09 | ER ---
Nurse's Notes [facility] Name: Araceli Bledsoe Age: 34 yrs Sex: Female : 1985 Arrival Date: 11/13/2019 Time: 19:14 Bed 24 Private MD: Diagnosis: Other ovarian cysts;Urinary tract infection, site not specified Presentation: 11/12 19:29 Chief complaint: Patient states: November 06 started having vaginal spotting. Dysuria for ll1 2 days. + nausea and dizzy. No fever, generalized weakness. Coronavirus screen: Client denies travel out of the [place] in the last 14 days. At this time, the client does not indicate any symptoms associated with coronavirus-19. Ebola Screen: Patient denies travel to an Ebola-affected area in the 21 days before illness onset. Initial Sepsis Screen: Does the patient meet any 2 criteria? No. Patient's initial sepsis screen is negative. Risk Assessment: Do you want to hurt yourself or someone else? Patient reports no desire to harm self or others. Onset of symptoms was November 07, 2019. 19:29 Method Of Arrival: Ambulatory ll1 19:29 Acuity: BRITTNI 3 ll1 21:07 Initial Sepsis Screen: Does the patient have a suspected source of infection? No. jd3 Patient's initial sepsis screen is negative. Triage Assessment: 21:05 General: Appears in no apparent distress. comfortable, Behavior is calm, cooperative, jd3 appropriate for age. 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 - Social history:: Smoking status: Patient denies any tobacco usage or history of. Patient uses street drugs, marijuana, Patient/guardian denies using alcohol. Screenin:04 Abuse screen: Denies threats or abuse. Nutritional screening: No deficits noted. jd3 Tuberculosis screening: No symptoms or risk factors identified. Fall Risk IV access (20 points). Total Amaya Fall Scale indicates No Risk (0-24 pts). Assessment: 19:46 General: Appears in no apparent distress. comfortable. jd3 19:46 Pain: Complains of pain in suprapubic area Pain radiates to low back area Pain jd3 currently is 7 out of 10 on a pain scale. Pain began 2-3 days ago. Neuro: Level of Consciousness is awake, alert, obeys commands, Oriented to person, place, time, situation. Cardiovascular: Capillary refill < 3 seconds Patient's skin is warm and dry. Respiratory: Airway is patent Respiratory effort is even, unlabored, Respiratory pattern is regular, symmetrical. GI: No signs and/or symptoms were reported involving the gastrointestinal system. : Reports cramping, vaginal bleeding that is spotty, pt reports feeling crampy and achy after urinating since 11/06. EENT: No signs and/or symptoms were reported regarding the EENT system. Derm: Skin is intact, is healthy with good turgor, Skin is dry, Skin is pink, warm \T\ dry. Musculoskeletal: Circulation, motion, and sensation intact. Range of motion: intact in all extremities. 21:57 Reassessment: Patient appears in no apparent distress at this time. Patient and/or jd3 family updated on plan of care and expected duration. Pain level reassessed. Patient is alert, oriented x 3, equal unlabored respirations, skin warm/dry/pink. Patient states feeling better. 22:27 Reassessment: Patient appears in no apparent distress at this time. Patient and/or jd3 family updated on plan of care and expected duration. Pain level reassessed. Patient is alert, oriented x 3, equal unlabored respirations, skin warm/dry/pink. assisted pt to er exit, pt stated marked relief of pain. Vital Signs: 19:29 BP 121 / 80; Pulse 85; Resp 17; Temp 98.6; Pulse Ox 99% ; Weight 67.59 kg; Height 5 ft. ll1 7 in. (170.18 cm); Pain 7/10; 20:38 BP 118 / 69; Pulse 55; Resp 12; Pulse Ox 100% on R/A; Pain 7/10; jd3 21:37 BP 105 / 66; Pulse 55; Pulse Ox 100% on R/A; jd3 19:29 Body Mass Index 23.34 (67.59 kg, 170.18 cm) ll1 ED Course: 19:14 Patient arrived in ED. cf2 19:31 Triage completed. ll1 19:32 Arm band placed on. ll1 19:34 Prashant Quick PA is PHCP. [facility] 19:34 Alan Sutherland MD is Attending Physician. [facility] 19:46 Alex Reveles RN is Primary Nurse. jd3 20:25 Inserted saline lock: 20 gauge in left antecubital area, using aseptic technique. jd3 ,using aseptic technique. placed by TONA Wright Blood collected. 21:04 Patient has correct armband on for positive identification. Bed in low position. Call jd3 light in reach. Side rails up X 1. 21:04 No provider procedures requiring assistance completed. jd3 21:05 CT Abd/Pelvis - IV Contrast Only In Process Unspecified. EDMS 22:27 IV discontinued, intact, bleeding controlled, No redness/swelling at site. Pressure jd3 dressing applied. Administered Medications: 21:19 Drug: morphine 2 mg Route: IVP; Site: left antecubital; jd3 21:39 Follow up: Response: No adverse reaction; Pain is decreased jd3 21:46 Follow up: Response: RASS: Alert and Calm (0) jd3 21:19 Drug: Zofran (Ondansetron) 4 mg Route: IVP; Site: left antecubital; jd3 21:38 Follow up: Response: Nausea is decreased jd3 21:46 Drug: Ketorolac 30 mg Route: IVP; Site: left antecubital; jd3 22:02 Follow up: Response: Pain is decreased jd3 Outcome: 22:08 Discharge ordered by MD. jm 22:25 Discharged to home ambulatory. jd3 22:25 Condition: stable 22:25 Discharge instructions given to patient, Instructed on discharge instructions, follow up and referral plans. medication usage, Demonstrated understanding of instructions, follow-up care, medications, Prescriptions given X 1. 22:29 Patient left the ED. jd3 Signatures: Dispatcher [employer] EDMS Prashant Quick PA PA Alex Chavez RN RN jd3 Sakshi Hutton cf2 Danay Seals RN RN ll1 Corrections: (The following items were deleted from the chart) 21:22 19:58 Pain: Complains of pain in suprapubic area Pain radiates to low back area Pain jd3 currently is 7 out of 10 on a pain scale. Pain began 2-3 days ago. jd3 : 19:58 Neuro: Level of Consciousness is awake, alert, obeys commands, Oriented to jd3 person, place, time, situation, jd3 19:58 Cardiovascular: Capillary refill < 3 seconds Patient's skin is warm and dry. jd3 jd3 : 19:58 Respiratory: Airway is patent Respiratory effort is even, unlabored, Respiratory jd3 pattern is regular, symmetrical, jd3 19:58 GI: No signs and/or symptoms were reported involving the gastrointestinal system. jd3 jd3 19:58 : Reports cramping, vaginal bleeding that is spotty, pt reports feeling crampy jd3 and achy after urinating since 11/06 jd3 19:58 EENT: No signs and/or symptoms were reported regarding the EENT system. jd3 jd3 : 19:58 Derm: Skin is intact, is healthy with good turgor, Skin is dry, Skin is pink, jd3 warm \T\ dry. jd3 19:58 Musculoskeletal: Circulation, motion, and sensation intact. Range of motion: jd3 intact in all extremities, jd3 21:24 21:07 Condition: stable jd3 jd3
[2019-11-18 05:03] VITALS: TEMP 98.6
[2019-11-18 05:04] VITALS: O2SAT 100
[2019-11-18 05:05] VITALS: BP 105/66
== END 2019-11-13 22:29 | disposition home or self-care (01) ==
LOC: ER 19:12
DX: N39.0 Urinary tract infection, site not specified (principal); N83.299 Other ovarian cyst, unspecified side; Z88.0 Allergy status to penicillin; Z88.1 Allergy status to other antibiotic agents; Z88.5 Allergy status to narcotic agent
CPT/HCPCS: 36415; 74177; 80048; 80076; 81003; 81025; 83690; 85025; 96374; 96375; 99284; J2270; J2405; Q9967

== ENCOUNTER 2020-05-08 02:04 | Emergency (ER) | payer SELFPAY ==
[2020-05-08 04:01] LABS: Absolute Lymphocytes (CBC) 1.8 K/uL (0.7-4.9); Basophils % 0.4 % (0-1.3); Hematocrit 36.8 % (36.0-45.0); Lymphocytes % 25.2 % (15.3-44.8); MPV 9.2 fL (7.6-11.3); RBC Red Blood Cell Count 3.93 M/uL (3.86-4.86)
[2020-05-08 04:05] LABS: SARS-COV-2 RT PCR NEGATIVE (NEGATIVE)
[2020-05-08 04:17] LABS: BUN Blood Urea Nitrogen 12 mg/dL (7-18); Bicarbonate 25 mmol/L (21-32); Ferritin 73.1 ng/mL (8-388); Glucose Level 96 mg/dL (74-106); Potassium 3.4 mmol/L (3.5-5.1); Sodium Level 142 mmol/L (136-145)
[2020-05-08 04:50] LABS: Urine Blood NEGATIVE (NEG); Urine Glucose NEGATIVE (NEG); Urine Protein NEGATIVE (NEG)
[2020-05-08 04:51] LABS: Urine Bacteria <20 /HPF (<20); Urine RBC <5 /HPF (NONE SEEN)
--- NOTE | 2020-05-08 05:30 | ER ---
Nurse's Notes [facility] Name: Araceli Bledsoe Age: 35 yrs Sex: Female : 1985 Arrival Date: 05/08/2020 Time: 02:05 Bed 24 Private MD: Garrett Lechuga T Diagnosis: Chest pain, unspecified;Pleurisy Presentation: 05/08 02:47 Chief complaint: Patient states: Chest pain and pain with inspiration that began sg Wednesday, symptoms worsening on Wednesday with feeling feverish and having developed "foggy" vision on the outer aspect of the field of vision, reports no other neuro symptoms at this time. pt reports having a COVID test done at [facility] on Wednesday, but does not know the results at this time. Coronavirus screen: The client indicates previous COVID test results are pending. Date of collection: May 05, 2020 Staff notified of need for isolation. Ebola Screen: Patient negative for fever greater than or equal to 101.5 degrees Fahrenheit, and additional compatible Ebola Virus Disease symptoms Patient denies exposure to infectious person. Patient denies travel to an Ebola-affected area in the 21 days before illness onset. No symptoms or risks identified at this time. Initial Sepsis Screen: Does the patient meet any 2 criteria? No. Patient's initial sepsis screen is negative. Does the patient have a suspected source of infection? No. Patient's initial sepsis screen is negative. Risk Assessment: Do you want to hurt yourself or someone else? Patient reports no desire to harm self or others. Onset of symptoms was May 03, 2020. Care prior to arrival: None. Activity prior to arrival: None. Transition of care: patient was not received from another setting of care. 02:47 Acuity: BRITTNI 3 sg 02:47 Method Of Arrival: Ambulatory sg Historical: - Allergies: 02:53 Amoxicillin; sg 02:53 PENICILLINS; sg 02:53 Soma; sg - PMHx: 02:53 None; sg - PSHx: 02:53 None; sg - Immunization history:: Adult Immunizations up to date. - Social history:: Smoking status: Patient denies any tobacco usage or history of. Patient uses street drugs, marijuana. - Family history:: not pertinent. - Hospitalizations: : No recent hospitalization is reported. Screenin:20 Abuse screen: Denies threats or abuse. Denies injuries from another. Nutritional sg screening: No deficits noted. Tuberculosis screening: No symptoms or risk factors identified. Never had TB. Fall Risk None identified. Assessment: 03:31 Reassessment: Patient appears in no apparent distress at this time. Patient is alert, sg oriented x 3, equal unlabored respirations, skin warm/dry/pink. 05:30 Reassessment: facility alert code red has been activated, pt to remain in room until sg instructed otherwise at this time, pt is up for discharge to home. Vital Signs: 02:47 Pulse 78; Resp 18; Temp 97.1; Pulse Ox 98% on R/A; Weight 64.86 kg; Height 5 ft. 6 in. sg (167.64 cm); Pain 6/10; 03:00 BP 122 / 80; sg 02:47 Body Mass Index 23.08 (64.86 kg, 167.64 cm) sg ED Course: 02:05 Patient arrived in ED. do 02:05 Garrett Lechuga MD is Private Physician. do 02:36 Aditya Lopez MD is Attending Physician. rn 02:52 Triage completed. sg 02:53 Jimbo Reyes, RN is Primary Nurse. sg 02:53 Arm band placed on. sg 03:20 Initial lab(s) drawn, by me, sent to lab. COVID swab sent to lab. Flu and/or RSV swab sg sent to lab. Inserted saline lock: 20 gauge in right antecubital area, using aseptic technique. Blood collected. 03:33 XRAY Chest (1 view) In Process Unspecified. EDMS 03:42 Urine collected: clean catch specimen. sg Administered Medications: No medications were administered Outcome: 05:29 Discharge ordered by . rn 06:08 Patient left the ED. sg Signatures: Dispatcher [employer] EDMS Jimbo Reyes RN RN sg Nieto, Roman, MD MD rn Ogletree, Danielle do
--- NOTE | 2020-05-08 05:30 | EDPHYS ---
Physician Documentation [facility] Name: Araceli Bledsoe Age: 35 yrs Sex: Female : 1985 Arrival Date: 05/08/2020 Time: 02:05 Bed 24 Private MD: Garrett Lechuga T ED Physician Aditya Lopez HPI: 05/08 03:00 This 35 yrs old Female presents to ER via Ambulatory with complaints of rn "feels sick". 03:00 Reports "feels sick", since Wednesday, with chills, subjective fever, sob, muscle aches, rn fatigue, abd cramping. Got swabbed for COVID but results pending. No vomiting/diarrhea. No neck stiffness or pain. No known sick contacts. . Onset: The symptoms/episode began/occurred 4 day(s) ago. Severity of symptoms: At their worst the symptoms were mild in the emergency department the symptoms are unchanged. The patient has not experienced similar symptoms in the past. The patient has not recently seen a physician. Historical: - Allergies: 02:53 Amoxicillin; sg 02:53 PENICILLINS; sg 02:53 Soma; sg - PMHx: 02:53 None; sg - PSHx: 02:53 None; sg - Immunization history:: Adult Immunizations up to date. - Social history:: Smoking status: Patient denies any tobacco usage or history of. Patient uses street drugs, marijuana. - Family history:: not pertinent. - Hospitalizations: : No recent hospitalization is reported. 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 Exam: 03:00 Constitutional: This is a well developed, well nourished patient who is awake, alert, rn appears anxious Head/Face: Normocephalic, atraumatic. ENT: No stridor Neck: Trachea midline, no masses palpated, and no cervical lymphadenopathy. Supple, full range of motion without nuchal rigidity, or vertebral point tenderness. No Meningismus. Cardiovascular: Regular rate and rhythm. No pulse deficits. Respiratory: Speaking full sentences. No increased work of breathing, no retractions or nasal flaring. Abdomen/GI: soft, non-tender Skin: Warm, dry with normal turgor. Normal color with no rashes, no lesions, and no evidence of cellulitis. MS/ Extremity: Pulses equal, no cyanosis. Neurovascular intact. Full, normal range of motion. Equal circumference. Neuro: Awake and alert, GCS 15, oriented to person, place, time, and situation. Vital Signs: 02:47 Pulse 78; Resp 18; Temp 97.1; Pulse Ox 98% on R/A; Weight 64.86 kg; Height 5 ft. 6 in. sg (167.64 cm); Pain 6/10; 03:00 BP 122 / 80; sg 02:47 Body Mass Index 23.08 (64.86 kg, 167.64 cm) sg MDM: 02:36 Patient medically screened. rn 05:27 Differential Diagnosis viral illness, PE, PTX, pleurisy. Data reviewed: vital signs, rn nurses notes, lab test result(s), radiologic studies, plain films, and as a result, I will discharge patient. Counseling: I had a detailed discussion with the patient and/or guardian regarding: the historical points, exam findings, and any diagnostic results supporting the discharge/admit diagnosis, lab results, radiology results, the need for outpatient follow up, to return to the emergency department if symptoms worsen or persist or if there are any questions or concerns that arise at home. Response to treatment: the patient's symptoms have mildly improved after treatment, and as a result, I will discharge patient. Special discussion: I discussed with the patient/guardian in detail that at this point there is no indication for admission to the hospital. It is understood, however, that if the symptoms persist or worsen the patient needs to return immediately for re-evaluation. ED course: Pt improved, cxr neg, d-dimer neg, flu/covid neg, stable vitals without oxygen requirement. Will dc home with prn motrin for most likely viral illness and pleurisy, recommend cessation of smoking. . 02/17 02:54 Order name: COVID-19 : Document "Date of Symptom Onset" if Symptomatic. rn 05/08 02:54 Order name: Urine Microscopic Only; Complete Time: 05:09 rn 05/08 02:54 Order name: CBC with Diff; Complete Time: 04:34 rn 05/08 02:54 Order name: Basic Metabolic Panel; Complete Time: 04:34 rn 05/08 02:54 Order name: D-Dimer; Complete Time: 04:34 rn 05/08 02:52 Order name: XRAY Chest (1 view) rn 05/08 02:54 Order name: Ferritin; Complete Time: 04:34 05/08 03:44 Order name: Urine Dipstick--Ancillary (enter results) 05/08 03:44 Order name: Urine --Ancillary (enter results) 05/08 03:44 Order name: Urine Dipstick-Ancillary; Complete Time: 05:09 [facility] 05/08 03:44 Order name: Urine --Ancillary; Complete Time: 05:09 [facility] 05/08 04:05 Order name: COVID-19/FLU A+B; Complete Time: 04:34 [facility] 05/08 02:54 Order name: Urine Test (obtain specimen); Complete Time: 03:42 rn 05/08 02:54 Order name: Urine Dipstick-Ancillary (obtain specimen); Complete Time: 03:42 05/08 02:55 Order name: IV Start; Complete Time: 02:59 rn Administered Medications: No medications were administered Disposition: 05/08/20 05:29 Discharged to Home. Impression: Chest pain, unspecified, Pleurisy. - Condition is Stable. - Discharge Instructions: Nonspecific Chest Pain, Pleurisy. - Medication Reconciliation Form, Thank You Letter, Antibiotic Education, Prescription Opioid Use, Work release form form. - Follow up: Private Physician; When: As needed; Reason: Recheck today's complaints, Re-evaluation by your physician. - Problem is new. - Symptoms have improved. Signatures: Dispatcher [employer] [facility] Jimbo Reyes RN RN Aditya Lopez MD MD garnett fixer: (The following items were deleted from the chart) 03:24 02:55 Influenza Screen (A \\T\\ B)+BA.LAB.BRZ ordered. EDDE EDMS 03:25 02:55 CORONAVIRUS ordered. EDDE EDMS 06:08 05:29 05/08/2020 05:29 Discharged to Home. Impression: Chest pain, unspecified; sg Pleurisy. Condition is Stable. Forms are Medication Reconciliation Form, Thank You Letter, Antibiotic Education, Prescription Opioid Use. Follow up: Private Physician; When: As needed; Reason: Recheck today's complaints, Re-evaluation by your physician. Problem is new. Symptoms have improved. rn
[2020-05-08 06:13] VITALS: TEMP 97.1; O2SAT 98
[2020-05-08 06:14] VITALS: BP 122/80
--- NOTE | 2020-05-08 14:36 | RAD REPORT ---
EXAM DESCRIPTION: RAD - Chest Single View - 05/08/2020 3:33 am CLINICAL HISTORY: 5 years Female, DYSPNEA COMPARISON: None FINDINGS: No focal lung consolidation. No pleural effusion. No pneumothorax. Cardiac and mediastinal silhouette is unremarkable. No acute osseous abnormality. Soft tissues are unremarkable. IMPRESSION: No acute findings. No focal lung consolidation. Electronically signed by: Benny Warren DO 05/08/2020 4:11 AM EDITORIAL CARTOONIST Due to temporary technical issues with the PACS/Fluency reporting system, reports are being signed by the in house radiologist without review as a courtesy to ensure prompt reporting. The interpreting r adiologist is fully responsible for the content of the report.
== END 2020-05-08 06:08 | disposition home or self-care (01) ==
LOC: ER 02:04
DX: R09.1 Pleurisy (principal); Z20.822 Contact with and (suspected) exposure to COVID-19; Z88.0 Allergy status to penicillin; Z88.1 Allergy status to other antibiotic agents
CPT/HCPCS: 0240U; 36415; 71045; 80048; 81003; 81015; 81025; 82728; 85025; 85379; 99283

== ENCOUNTER 2021-03-19 14:59 | Emergency (ER) | payer SELFPAY ==
--- NOTE | 2021-03-19 16:26 | RAD REPORT ---
EXAM DESCRIPTION: RAD - Chest Pa And Lat (2 Views) - 03/19/2021 4:07 pm CLINICAL HISTORY: CHEST PAIN Chest pain. COMPARISON: Chest Single View dated 05/08/2020; Chest Single View dated 04/04/2016; CHEST PA AND LAT 2 VIEW dated 09/28/2014; CHEST SINGLE VIEW dated 01/30/2013 FINDINGS: The lungs are clear. The heart is normal in size. No displaced fractures. IMPRESSION: No acute or concerning finding suspected.
[2021-03-19 17:50] LABS: Absolute Lymphocytes (CBC) 1.4 K/uL (0.7-4.9); Hematocrit 42.7 % (36.0-45.0); Lymphocytes % 18.4 % (15.3-44.8); MPV 8.8 fL (7.6-11.3); RBC Red Blood Cell Count 4.61 M/uL (3.86-4.86)
[2021-03-19 18:03] LABS: BUN Blood Urea Nitrogen 12 mg/dL (7-18); Bicarbonate 27 mmol/L (21-32); Glucose Level 102 mg/dL (74-106); Potassium 3.6 mmol/L (3.5-5.1); Sodium Level 139 mmol/L (136-145)
--- NOTE | 2021-03-19 18:06 | ER ---
Nurse's Notes [facility] Name: Araceli Trujillo Age: 35 yrs Sex: Female : 1985 Arrival Date: 03/19/2021 Time: 15:00 Bed 11 Private MD: Garrett Lechuga T Diagnosis: Coronavirus infection, unspecified;Chest pain, unspecified Presentation: 03/19 15:44 Chief complaint: Patient states: Covid positive since 03/11/21. Chest pain began x 1 vg1 week that radiates to upper back. Denies cough and VD; states nausea. Coronavirus screen: Vaccine status: Patient reports receiving the 2nd dose of the covid vaccine. Client denies travel out of the [place] in the last 14 days. Ebola Screen: Patient negative for fever greater than or equal to 101.5 degrees Fahrenheit, and additional compatible Ebola Virus Disease symptoms. Initial Sepsis Screen: Does the patient meet any 2 criteria? No. Patient's initial sepsis screen is negative. Does the patient have a suspected source of infection? No. Patient's initial sepsis screen is negative. Risk Assessment: Do you want to hurt yourself or someone else? Patient reports no desire to harm self or others. Onset of symptoms was March 11, 2021. 15:44 Method Of Arrival: Ambulatory vg1 15:44 Acuity: BRITTNI 3 vg1 Triage Assessment: 15:47 General: Appears in no apparent distress. comfortable, Behavior is calm, cooperative. vg1 Pain: Complains of pain in anterior aspect of right upper chest and anterior aspect of left upper chest and back Pain currently is 0 out of 10 on a pain scale. at worst was 10 out of 10 on a pain scale. Cardiovascular: Patient's skin is warm and dry. 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 - Social history:: Smoking status: Patient uses street drugs, marijuana. Screenin:48 Abuse screen: Denies threats or abuse. Nutritional screening: No deficits noted. vg1 Tuberculosis screening: No symptoms or risk factors identified. Vital Signs: 15:44 BP 149 / 98; Pulse 95; Resp 16; Temp 98.7; Pulse Ox 100% ; Weight 66.68 kg; Height 5 vg1 ft. 7 in. (170.18 cm); Pain 0/10; 15:44 Body Mass Index 23.02 (66.68 kg, 170.18 cm) vg1 ED Course: 15:00 Patient arrived in ED. am2 15:00 Garrett Lechuga MD is Private Physician. am2 15:18 Karlee Keita [facility]-C [facility]. kb 15:18 Joseph Macias MD is Attending Physician. kb 15:47 Triage completed. vg1 15:49 Arm band placed on. EKG completed in triage. Results shown to MD. vg1 16:06 Chest Pa And Lat (2 Views) XRAY In Process Unspecified. EDMS Administered Medications: No medications were administered Outcome: 18:05 Discharge ordered by MD. kb 18:12 Patient left the ED. kb Signatures: Dispatcher [employer] EDMS Karlee Keita FNP-C FNP-Ckb Moreno, Amanda am2 Mague Treadwell, RN RN vg1 Corrections: (The following items were deleted from the chart) 15:48 15:47 Home Meds: BC; vg1 vg1
--- NOTE | 2021-03-19 18:06 | EDPHYS ---
Physician Documentation [facility] Name: Araceli Trujillo Age: 35 yrs Sex: Female : 1985 Arrival Date: 03/19/2021 Time: 15:00 Bed 11 Private MD: Garrett Lechuga T ED Physician Joseph Macias HPI: 03/19 16:14 This 35 yrs old Female presents to ER via Ambulatory with complaints of Chest Pain - kb covid+. 16:14 The patient or guardian reports chest pain that is located primarily in the anterior kb chest wall, left. The pain radiates to Associated signs and symptoms: The patient has no apparent associated signs or symptoms. The chest pain is described as a heaviness. Duration: The patient or guardian reports a single episode. Modifying factors: The symptoms are alleviated by nothing. the symptoms are aggravated by nothing. Severity of pain: At its worst the pain was moderate in the emergency department the pain is unchanged. The patient has not experienced similar symptoms in the past. The patient has not recently seen a physician. Pt reports she tested positive for covid on 03/11/21 and developed chest pain 3 days ago. . 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 - Social history:: Smoking status: Patient uses street drugs, marijuana. ROS: 16:13 Constitutional: Negative for fever, chills, and weight loss. kb 16:13 Cardiovascular: Positive for chest pain, Negative for edema, orthopnea, palpitations, paroxysmal nocturnal dyspnea. 16:13 All other systems are negative. Exam: 16:13 Constitutional: This is a well developed, well nourished patient who is awake, alert, kb and in no acute distress. Head/Face: Normocephalic, atraumatic. ENT: Moist Mucous membranes Cardiovascular: Regular rate and rhythm with a normal S1 and S2. No gallops, murmurs, or rubs. No pulse deficits. Respiratory: Respirations even and unlabored. No increased work of breathing. Talking in full sentences Skin: Warm, dry with normal turgor. Normal color. MS/ Extremity: Pulses equal, no cyanosis. Neurovascular intact. Full, normal range of motion. Neuro: Awake and alert, GCS 15, oriented to person, place, time, and situation. Moves all extremities. Normal gait. Psych: Awake, alert, with orientation to person, place and time. Behavior, mood, and affect are within normal limits. Vital Signs: 15:44 BP 149 / 98; Pulse 95; Resp 16; Temp 98.7; Pulse Ox 100% ; Weight 66.68 kg; Height 5 vg1 ft. 7 in. (170.18 cm); Pain 0/10; 15:44 Body Mass Index 23.02 (66.68 kg, 170.18 cm) vg1 MDM: 15:47 Patient medically screened. kb 16:14 Data reviewed: vital signs, nurses notes. Data interpreted: Pulse oximetry: on room air kb is 100 %. Interpretation: normal. 18:05 Counseling: I had a detailed discussion with the patient and/or guardian regarding: the kb historical points, exam findings, and any diagnostic results supporting the discharge/admit diagnosis, lab results, radiology results, the need for outpatient follow up, a family practitioner, to return to the emergency department if symptoms worsen or persist or if there are any questions or concerns that arise at home. 03/19 15:48 Order name: CBC with Diff; Complete Time: 17:52 kb 03/19 15:48 Order name: Basic Metabolic Panel; Complete Time: 18:04 kb 03/19 15:48 Order name: IV Start kb 03/19 15:48 Order name: D-Dimer; Complete Time: 17:54 kb 03/19 15:48 Order name: Chest Pa And Lat (2 Views) XRAY; Complete Time: 16:33 kb 03/19 15:48 Order name: EKG; Complete Time: 15:48 kb 03/19 15:48 Order name: EKG - Nurse/Tech; Complete Time: 15:50 kb Administered Medications: No medications were administered Disposition: 18:57 Co-signature as Attending Physician, Joseph Macias MD I agree with the assessment and kdr plan of care. Disposition Summary: 03/19/21 18:05 Discharge Ordered Location: Home kb Condition: Stable kb Diagnosis - Coronavirus infection, unspecified kb - Chest pain, unspecified kb Followup: kb - With: Emergency Department - When: As needed - Reason: Worsening of condition Followup: kb - With: Private Physician - When: 2 - 3 days - Reason: Recheck today's complaints, Continuance of care, Re-evaluation by your physician Discharge Instructions: - Discharge Summary Sheet kb - Nonspecific Chest Pain, Adult, [id number] kb - Viral Respiratory Infection, [id number] kb - COVID-19 kb Forms: - Medication Reconciliation Form kb - Thank You Letter kb - Antibiotic Education kb - Prescription Opioid Use kb Signatures: Dispatcher [employer] EDMS Karlee Keita, YUDITH-C [employer]WAY CAR REPAIRER-Joseph Zayas MD MD kdr Garcia, Victoria, RN RN vg1 Corrections: (The following items were deleted from the chart) 15:48 15:47 Home Meds: BC; vg1 vg1
[2021-03-19 18:27] VITALS: BP 149/98; TEMP 98.7; O2SAT 100
== END 2021-03-19 18:12 | disposition home or self-care (01) ==
LOC: ER 14:59
DX: U07.1 COVID-19 (principal); R07.9 Chest pain, unspecified; Z88.0 Allergy status to penicillin; Z88.1 Allergy status to other antibiotic agents
CPT/HCPCS: 36415; 71046; 80048; 85025; 85379; 93005; 99282

== ENCOUNTER 2023-01-22 01:35 | Emergency (ER) | payer OTHER, SELFPAY ==
[2023-01-22 02:22] LABS: Absolute Lymphocytes (CBC) 2.5 K/uL (0.7-4.9); Hematocrit 39.4 % (36.0-45.0); Lymphocytes % 28.9 % (15.3-44.8); MCV 91.2 fL (80-100); MPV 8.2 fL (7.6-11.3); Platelets 281 thou/uL (152-406); RBC Red Blood Cell Count 4.32 M/uL (3.86-4.86)
[2023-01-22] MEDS ORDERED: NA CHLORIDE 0.9% 1,000 ML ONE (02:28)
[2023-01-22] MEDS ORDERED: KETOROLAC 30 MG/ML INJ ONE (02:28)
[2023-01-22 02:43] LABS: Potassium 3.6 mEq/L (3.5-5.1); Troponin High Sensitivity 3.5 pg/mL (<58.9)
--- NOTE | 2023-01-22 03:11 | ER ---
Nurse's Notes [facility] Jovanni Name: Araceli Trujillo Age: 37 yrs Sex: Female : 1985 Arrival Date: 01/22/2023 Time: 01:35 Bed 20 Private MD: Diagnosis: Palpitations;Other otitis externa, right ear;Dizziness and giddiness Presentation: 01/22 01:57 Chief complaint: Patient states: ear pain and a headache. Coronavirus screen: Vaccine vc1 status: Patient reports being unvaccinated. Client presents with at least one sign or symptom that may indicate coronavirus-19. Client reports previous positive COVID test result. Date of collection: January 11, 2023. Ebola Screen: Patient negative for fever greater than or equal to 101.5 degrees Fahrenheit, and additional compatible Ebola Virus Disease symptoms Patient denies exposure to infectious person. Patient denies travel to an Ebola-affected area in the 21 days before illness onset. No symptoms or risks identified at this time. Risk Assessment: Do you want to hurt yourself or someone else? Patient reports no desire to harm self or others. Onset of symptoms was January 11, 2023. 01:57 Method Of Arrival: Ambulatory vc1 01:57 Acuity: BRITTNI 4 vc1 02:05 Initial Sepsis Screen: Does the patient meet any 2 criteria? No. Patient's initial vc1 sepsis screen is negative. Does the patient have a suspected source of infection? No. Patient's initial sepsis screen is negative. 02:05 Acuity: BRITTNI 3 rv Triage Assessment: 02:01 General: Appears in no apparent distress. uncomfortable, ill, Behavior is calm, vc1 cooperative, appropriate for age. Pain: Complains of pain in right sternocleidomastoid and left sternocleidomastoid Pain currently is 9 out of 10 on a pain scale. EENT: Reports pain in right ear and left ear. Neuro: Level of Consciousness is awake, alert, obeys commands, Oriented to person, place, time, situation, Appropriate for age Reports headache. Cardiovascular: Reports palpitations. Respiratory: Airway is patent Respiratory effort is even, unlabored, Respiratory pattern is regular, symmetrical. GI: No deficits noted. No signs and/or symptoms were reported involving the gastrointestinal system. : No deficits noted. No signs and/or symptoms were reported regarding the genitourinary system. Derm: No deficits noted. No signs and/or symptoms reported regarding the dermatologic system. Musculoskeletal: No deficits noted. No signs and/or symptoms reported regarding the musculoskeletal system. 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 - Social history:: Smoking status: Patient denies any tobacco usage or history of. Patient uses street drugs, marijuana. Screenin:27 [facility] ED Fall Risk Assessment (Adult) History of falling in the last 3 months, vc1 including since admission No falls in past 3 months (0 pts) Confusion or Disorientation No (0 pts) Intoxicated or Sedated No (0 pts) Impaired Gait No (0 pts) Mobility Assist Device Used No (0 pt) Altered Elimination No (0 pt) Score/Fall Risk Level 0 - 2 = Low Risk Oriented to surroundings, Maintained a safe environment, Educated pt \T\ family on fall prevention, incl call for assistance when getting out of bed. Abuse screen: Denies threats or abuse. Nutritional screening: No deficits noted. Tuberculosis screening: No symptoms or risk factors identified. Assessment: 03:00 Reassessment: Patient and/or family updated on plan of care and expected duration. Pain vc1 level reassessed. Patient is alert, oriented x 3, equal unlabored respirations, skin warm/dry/pink. Patient states feeling better. Patient states symptoms have improved. Vital Signs: 01:57 Weight 68.04 kg; Height 5 ft. 7 in. ; Pain 9/10; vc1 02:04 BP 122 / 90; Pulse 96; Resp 18; Temp 98.7; Pulse Ox 100% ; vc1 03:00 BP 120 / 84; Pulse 88; Resp 18; Pulse Ox 100% ; vc1 01:57 Body Mass Index 23.49 (68.04 kg, 170.18 cm) vc1 01:57 Pain Scale: Adult vc1 ED Course: 01:54 Patient arrived in ED. gm2 01:54 Karlee Keita [facility]-C [facility]. kb 01:54 Norm Andre MD is Attending Physician. kb 02:00 Triage completed. vc1 02:01 Paul Grant, RN is Primary Nurse. rv 02:01 Arm band placed on right wrist. vc1 03:00 Patient has correct armband on for positive identification. Bed in low position. Client vc1 placed on continuous cardiac and pulse oximetry monitoring. NIBP monitoring applied. 03:27 No provider procedures requiring assistance completed. IV discontinued, intact, vc1 bleeding controlled, No redness/swelling at site. Administered Medications: 02:15 Drug: NS 0.9% IV 1000 ml IV at 1000 ml once Route: IV; Rate: 1000 ml; Site: right rv antecubital; 02:15 Drug: Ketorolac IVP 15 mg IVP once Route: IVP; Site: right antecubital; rv 03:26 Follow up: Response: No adverse reaction; Marked relief of symptoms; Pain is decreased vc1 03:26 Drug: Hydrocodone-Acetaminophen PO (7.5 mg-325 mg) 1 tabs PO once Route: PO; vc1 03:26 Follow up: Response: Medication administered at discharge. vc1 Medication: 03:28 VIS not applicable for this client. vc1 Outcome: 03:10 Discharge ordered by . papi 03:27 Discharged to home ambulatory, with significant other, vc1 03:27 Condition: good 03:27 Discharge instructions given to patient, Instructed on discharge instructions, follow up and referral plans. Demonstrated understanding of instructions, follow-up care, 03:29 Patient left the ED. vc1 Signatures: Karlee Keita FNP-C FNP-CkNorm Pedraza MD MD cha Vicente, Ronaldo, RN RN rv Kendra Christine RN RN vc1 Codi Buck gm2
--- NOTE | 2023-01-22 03:11 | EDPHYS ---
Physician Documentation [facility] Jovanni Name: Araceli Trujillo Age: 37 yrs Sex: Female : 1985 Arrival Date: 01/22/2023 Time: 01:35 Bed 20 Private MD: RAJANI Physician Norm Andre HPI: 01/22 02:32 This 37 yrs old Female presents to ER via Ambulatory with complaints of Ear Pain, kb Headache. 02:32 Patient is a 37-year-old female with no medical history who presents for ear pain kb bilaterally, palpitations, dizziness, headache that started last week. States she was diagnosed with COVID last week as well. Denies shortness of breath, fever. Was seen by PCP on 01/19/2023 and given Zithromax, meclizine and neomycin polymyxin drops. States she has not taken the meclizine for dizziness because she is worried about side effects. States she came in tonight because she could not sleep due to ear pain.. 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 - Social history:: Smoking status: Patient denies any tobacco usage or history of. Patient uses street drugs, marijuana. ROS: 02:09 Constitutional: Negative for fever, chills, and weight loss, kb 02:09 ENT: Positive for ear pain, 02:09 Cardiovascular: Positive for palpitations, 02:09 Neuro: Positive for dizziness, headache, 02:09 All other systems are negative, Exam: 02:09 Constitutional: This is a well developed, well nourished patient who is awake, alert, kb and in no acute distress. Head/Face: Normocephalic, atraumatic. Chest/axilla: Normal chest wall appearance and motion. Cardiovascular: Regular rate Respiratory: Respirations even and unlabored. No increased work of breathing. Talking in full sentences Abdomen/GI: Soft, non-tender. No distention Skin: Warm, dry with normal turgor. Normal color. MS/ Extremity: Pulses equal, no cyanosis. Neurovascular intact. Full, normal range of motion. Neuro: Awake and alert, GCS 15, oriented to person, place, time, and situation. Moves all extremities. Normal gait. 02:09 ENT: Ear canal(s): purulent discharge, that is minimal, in the right canal, swelling, that is moderate, of the right canal, TM's: are normal, 02:23 ECG was reviewed by the Attending Physician. kb Vital Signs: 01:57 Weight 68.04 kg; Height 5 ft. 7 in. ; Pain 9/10; vc1 02:04 BP 122 / 90; Pulse 96; Resp 18; Temp 98.7; Pulse Ox 100% ; vc1 03:00 BP 120 / 84; Pulse 88; Resp 18; Pulse Ox 100% ; vc1 01:57 Body Mass Index 23.49 (68.04 kg, 170.18 cm) vc1 01:57 Pain Scale: Adult vc1 MDM: 01:54 Patient medically screened. kb 02:09 Differential diagnosis: otitis media, otitis externa, ruptured TM, acute otalgia, kb dehydration, covid, vertigo, abnormal ekg. Data reviewed: vital signs, nurses notes. 02:32 Transition of care: After a detail discussion of the patient's case, care is kb transferred to Norm Andre MD. 01/22 02:00 Order name: CBC with Diff; Complete Time: 02:52 kb 01/22 02:00 Order name: Basic Metabolic Panel; Complete Time: 02:52 kb 01/22 02:00 Order name: Troponin High Sensitivity; Complete Time: 02:52 kb 01/22 02:37 Order name: Magnesium; Complete Time: 03:10 papi 01/22 02:02 Order name: EKG; Complete Time: 02:02 kb 01/22 02:00 Order name: IV Start; Complete Time: 02:12 kb 01/22 02:02 Order name: EKG - Nurse/Tech; Complete Time: 02:23 kb EC:23 Rate is 65 beats/min. Rhythm is regular. QRS [place] is Normal. CT interval is normal at kb 134 msec. QRS interval is normal at 90 msec. QT interval is normal at 405 msec. Administered Medications: 02:15 Drug: NS 0.9% IV 1000 ml IV at 1000 ml once Route: IV; Rate: 1000 ml; Site: right rv antecubital; 02:15 Drug: Ketorolac IVP 15 mg IVP once Route: IVP; Site: right antecubital; rv 03:26 Follow up: Response: No adverse reaction; Marked relief of symptoms; Pain is decreased vc1 03:26 Drug: Hydrocodone-Acetaminophen PO (7.5 mg-325 mg) 1 tabs PO once Route: PO; vc1 03:26 Follow up: Response: Medication administered at discharge. vc1 Disposition Summary: 01/22/23 03:10 Discharge Ordered Notes: Location: Home papi Condition: Stable papi Diagnosis - Palpitations papi - Other otitis externa, right ear papi - Dizziness and giddiness papi Followup: kb - With: Emergency Department - When: As needed - Reason: Worsening of condition Followup: kb - With: Private Physician - When: 2 - 3 days - Reason: Recheck today's complaints, Continuance of care, Re-evaluation by your physician Discharge Instructions: - Discharge Summary Sheet kb - Otitis Externa, Ojtb-de-Itqh kb - Ear Drops, Adult, Flrb-hi-Fhyj kb - Vertigo, Gzkt-lg-Rnek kb - Palpitations, Wqkj-ou-Uigd kb - Dizziness, Purf-dl-Pxqn kb Forms: - Medication Reconciliation Form [facility] - Thank You Letter papi - Antibiotic Education papi - Prescription Opioid Use papi - Patient Portal Instructions [facility] - Leadership Thank You Letter [facility] Signatures: Dispatcher [employer] Karlee Tolliver, CONCHA IRWINP-Norm Rosado MD MD cha Vicente, Ronaldo, RN RN rv Kendra Christine RN RN vc1
[2023-01-22] MEDS ORDERED: HYDROCODONE/APAP 7.5/325 MG TAB ONE (03:26)
[2023-01-22 04:21] VITALS: TEMP 98.7; O2SAT 100
[2023-01-22 04:22] VITALS: BP 120/84
== END 2023-01-22 03:29 | disposition home or self-care (01) ==
LOC: ER 01:35
DX: R00.2 Palpitations (principal); H60.8X1 Other otitis externa, right ear; R42 Dizziness and giddiness
CPT/HCPCS: 36415; 80048; 83735; 84484; 85025; 93005; 96374; 99284; J7030

== ENCOUNTER 2023-01-26 22:44 | Emergency (ER) | payer SELFPAY ==
[2023-01-26] MEDS ORDERED: HYDROCODONE/APAP 7.5/325 MG TAB ONE (23:39)
--- NOTE | 2023-01-27 01:35 | EDPHYS ---
Physician Documentation [facility] Name: Araceli Trujillo Age: 37 yrs Sex: Female : 1985 Arrival Date: 01/26/2023 Time: 22:44 Bed 15 Private MD: ED Physician Norm Andre HPI: 01/27 00:28 This 37 yrs old Female presents to ER via Ambulatory with complaints of Ear Pain - kb VERTIGO. 00:28 Patient is a 37-year-old female with no medical history presents for bilateral ear kb pain, worse on the right and dizziness that has been going on for over a week. Has been seen here for similar symptoms, seen by PCP and given meclizine, Zithromax and eardrops. States symptoms are not improving with treatment.. Historical: - Allergies: 01/26 22:59 Amoxicillin; cm10 22:59 PENICILLINS; cm10 22:59 Soma; cm10 - PMHx: 22:59 None; cm10 - PSHx: 22:59 None; cm10 - Immunization history:: Adult Immunizations unknown. - Social history:: Smoking status: Patient denies any tobacco usage or history of. ROS: 01/27 00:27 Constitutional: Negative for fever, chills, and weight loss, kb ENT: Positive for ear pain, Neuro: Positive for dizziness, All other systems are negative, Exam: 00:27 Constitutional: This is a well developed, well nourished patient who is awake, alert, kb and in no acute distress. Head/Face: Normocephalic, atraumatic. ENT: Moist Mucous membranes Cardiovascular: Regular rate Respiratory: Respirations even and unlabored. No increased work of breathing. Talking in full sentences Skin: Warm, dry with normal turgor. Normal color. MS/ Extremity: Pulses equal, no cyanosis. Neurovascular intact. Full, normal range of motion. Neuro: Awake and alert, GCS 15, oriented to person, place, time, and situation. Moves all extremities. Normal gait. Vital Signs: 01/26 22:56 BP 125 / 78; Pulse 90; Resp 18; Temp 97.3(IR); Pulse Ox 100% ; Weight 68.04 kg; Height cm10 5 ft. 7 in. ; 01/27 01:06 BP 110 / 72; Pulse 65; Resp 19; Pulse Ox 99% ; Pain 0/10; jj7 01:53 BP 106 / 68; Pulse 62; Resp 19; Pulse Ox 97% ; jj7 01/26 22:56 Body Mass Index 23.49 (68.04 kg, 170.18 cm) cm10 01/27 01:06 Pain Scale: Adult jj7 MDM: 01/26 22:51 Patient medically screened. kb 01/27 00:29 Differential diagnosis: otitis media, otitis externa, ruptured TM, foreign body, acute kb otalgia, mastoiditis. Data reviewed: vital signs, nurses notes. 01:34 Counseling: I had a detailed discussion with the patient and/or guardian regarding the kb historical points, exam findings, and any diagnostic results supporting the discharge/admit diagnosis, radiology results, the need for outpatient follow up, an ENT specialist, a family practitioner, to return to the emergency department if symptoms worsen or persist or if there are any questions or concerns that arise at home. 01:37 Response to treatment: the patient's symptoms have resolved after treatment, the kb patient's pain is gone, dizziness resolved . 01/26 23:03 Order name: CT Head Brain wo Cont kb Administered Medications: 01/26 23:28 Drug: Hydrocodone-Acetaminophen PO (7.5 mg-325 mg) 1 tabs PO once Route: PO; jj7 01/27 00:30 Follow up: Response: Marked relief of symptoms jj7 Disposition Summary: 01/27/23 01:35 Discharge Ordered Notes: Location: Home kb Condition: Stable kb Diagnosis - Otalgia kb - Dizziness and giddiness kb Followup: kb - With: Emergency Department - When: As needed - Reason: Worsening of condition Followup: kb - With: Private Physician - When: 2 - 3 days - Reason: Recheck today's complaints, Continuance of care, Re-evaluation by your physician Discharge Instructions: - Discharge Summary Sheet kb - Earache, Adult kb - Dizziness, Xwyb-as-Pqui kb Forms: - Medication Reconciliation Form kb - Thank You Letter kb - Antibiotic Education kb - Prescription Opioid Use kb - Patient Portal Instructions kb - Leadership Thank You Letter kb Signatures: Dispatcher [employer] Karlee Tolliver, YUDITH-C YUDITH-Blaze Jacobs RN RN jj7 Simon, Tianna, RN RN cm10
--- NOTE | 2023-01-27 01:35 | ER ---
Nurse's Notes [facility] Jovanni Name: Araceli Trujillo Age: 37 yrs Sex: Female : 1985 Arrival Date: 01/26/2023 Time: 22:44 Bed 15 Private MD: Diagnosis: Otalgia;Dizziness and giddiness Presentation: 01/26 22:56 Chief complaint: Patient states: tested positive for COVID 01/11 and on 01/19 followed cm10 up with PCP and was given a Z-pack, meclizine and ear drops for ear infection. Pt states that her ear pain is not getting worse and her dizziness isn't improving either. Pt reports that her right ear pain radiates down her neck. Coronavirus screen: Vaccine status: Patient reports being unvaccinated. Patient reports having had a previously documented Covid positive illness. January 11, 2023 Client denies travel out of the [place] in the last 14 days. Ebola Screen: Patient denies travel to an Ebola-affected area in the 21 days before illness onset. No symptoms or risks identified at this time. Initial Sepsis Screen: Does the patient meet any 2 criteria? No. Patient's initial sepsis screen is negative. Does the patient have a suspected source of infection? No. Patient's initial sepsis screen is negative. Risk Assessment: Do you want to hurt yourself or someone else? Patient reports no desire to harm self or others. Onset of symptoms was January 26, 2023. 22:56 Method Of Arrival: Ambulatory cm10 22:56 Acuity: BRITTNI 3 cm10 Historical: - Allergies: 22:59 Amoxicillin; cm10 22:59 PENICILLINS; cm10 22:59 Soma; cm10 - PMHx: 22:59 None; cm10 - PSHx: 22:59 None; cm10 - Immunization history:: Adult Immunizations unknown. - Social history:: Smoking status: Patient denies any tobacco usage or history of. Screenin:28 [facility] ED Fall Risk Assessment (Adult) History of falling in the last 3 months, jj7 including since admission No falls in past 3 months (0 pts) Confusion or Disorientation No (0 pts) Intoxicated or Sedated No (0 pts) Impaired Gait No (0 pts) Mobility Assist Device Used No (0 pt) Altered Elimination No (0 pt) Score/Fall Risk Level 0 - 2 = Low Risk Oriented to surroundings, Maintained a safe environment, Educated pt \T\ family on fall prevention, incl call for assistance when getting out of bed. Abuse screen: Denies threats or abuse. Nutritional screening: No deficits noted. Tuberculosis screening: No symptoms or risk factors identified. Assessment: 23:28 General: Appears in no apparent distress. comfortable, Behavior is calm, cooperative, jj7 appropriate for age. Pain: Complains of pain in right ear. EENT: Reports RIGHT EAR PAIN. Vital Signs: 22:56 BP 125 / 78; Pulse 90; Resp 18; Temp 97.3(IR); Pulse Ox 100% ; Weight 68.04 kg; Height cm10 5 ft. 7 in. ; 01/27 01:06 BP 110 / 72; Pulse 65; Resp 19; Pulse Ox 99% ; Pain 0/10; jj7 01:53 BP 106 / 68; Pulse 62; Resp 19; Pulse Ox 97% ; jj7 01/26 22:56 Body Mass Index 23.49 (68.04 kg, 170.18 cm) cm10 01/27 01:06 Pain Scale: Adult jj7 ED Course: 01/26 22:48 Patient arrived in ED. kj1 22:51 Karlee Keita FNP-C is [facility]. kb 22:51 Norm Andre MD is Attending Physician. kb 22:59 Triage completed. cm10 23:03 Arm band placed on Patient placed in an exam room, on a stretcher. cm10 23:28 Patient has correct armband on for positive identification. Bed in low position. Call jj7 light in reach. Adult w/ patient. 23:58 CT Head Brain wo Cont In Process Unspecified. EDMS 01/27 01:53 No provider procedures requiring assistance completed. Patient did not have IV access jj7 during this emergency room visit. Administered Medications: 01/26 23:28 Drug: Hydrocodone-Acetaminophen PO (7.5 mg-325 mg) 1 tabs PO once Route: PO; jj7 01/27 00:30 Follow up: Response: Marked relief of symptoms jj7 Medication: 01/26 23:28 VIS not applicable for this client. jj7 Outcome: 01/27 01:35 Discharge ordered by . kb 02:03 Discharged to home via wheelchair, with significant other, [email or web address] 02:03 Condition: improved 02:03 Discharge instructions given to patient, Instructed on discharge instructions, Demonstrated understanding of instructions, 02:20 Patient left the ED. jj7 Signatures: Dispatcher [employer] EDKarlee Pedro, YUDITH-C POCKETED SPRING ASSEMBLER-Blanca Martínez kj1 Blaze Su RN RN jj7 Tianna Montes RN RN cm10 Corrections: (The following items were deleted from the chart) 01/26 23:03 22:56 Acuity: BRITTNI 4 cm10 cm10
[2023-01-27 02:25] VITALS: TEMP 97.3
[2023-01-27 02:28] VITALS: BP 106/68; O2SAT 97
--- NOTE | 2023-01-28 11:35 | RAD REPORT ---
EXAM DESCRIPTION: CT - Head Brain Wo Cont - 01/27/2023 6:39 am CLINICAL HISTORY: 37 years Female; r/o mastoiditis;Dizziness; Bed: TECHNIQUE: Noncontrast CT head. All CT scans at this facility use dose modulation, iterative reconstruction, and/or weight based dosi ng when appropriate to reduce radiation dose to as low as reasonably achievable. COMPARISON: CT head 12/05/2018 FINDINGS: Parenchyma: No acute hemorrhage, large territorial infarction, or mass effect Ventricles and extra-axial spaces: Appropriate for age. Visualized paranasal sinuses: Clear. Mastoid air cells: Clear. Bones: No acute focal abnormality. Additional comment: None. IMPRESSION: 1. No acute intracranial findings. 2. Mastoid air cells and middle ear cavities are clear. No CT evidence for mastoiditis. Electronically signed by: Meir Sargent MD 01/27/2023 01:27 AM ICT SECURITY SPECIALIST Due to temporary technical issues with the PACS/Fluency reporting system, reports are being signed by the in house radiologist without review as a courtesy to ensure prompt reporting. The interpreting r adiologist is fully responsible for the content of the report.
== END 2023-01-27 02:20 | disposition home or self-care (01) ==
LOC: ER 22:44
DX: H92.03 Otalgia, bilateral (principal); R42 Dizziness and giddiness
CPT/HCPCS: 70450; 99283

== ENCOUNTER 2023-02-13 16:31 | Emergency (ER) | payer SELFPAY ==
[2023-02-13] MEDS ORDERED: hydrOXYzine HCL 25 MG TAB ONE (18:40)
[2023-02-13] MEDS ORDERED: LORAZEPAM 1 MG TABLET ONE (18:42)
--- NOTE | 2023-02-13 20:15 | ER ---
Nurse's Notes [facility] [place] Name: Araceli Trujillo Age: 37 yrs Sex: Female : 1985 Arrival Date: 02/13/2023 Time: 16:31 Bed 20 Private MD: Diagnosis: Dizziness and giddiness Presentation: 02/13 17:19 Chief complaint: Patient states: had covid 01/11/23, my body doesn't feel right, cant ko1 sleep, anxiety. Coronavirus screen: At this time, the client does not indicate any symptoms associated with coronavirus-19. Ebola Screen: No symptoms or risks identified at this time. Initial Sepsis Screen: Does the patient meet any 2 criteria? No. Patient's initial sepsis screen is negative. Does the patient have a suspected source of infection? No. Patient's initial sepsis screen is negative. Risk Assessment: Do you want to hurt yourself or someone else? Patient reports no desire to harm self or others. Onset of symptoms is unknown. 17:19 Method Of Arrival: Ambulatory ko1 17:19 Acuity: BRITTNI 4 ko1 Triage Assessment: 17:22 Headache History: Denies prior headaches. General: Appears in no apparent distress. ko1 Behavior is cooperative, appropriate for age, anxious. Pain: Pain. Neuro: Reports headache. Historical: - Allergies: 17:22 Amoxicillin; ko1 17:22 PENICILLINS; ko1 17:22 Soma; ko1 - PMHx: 17:22 None; ko1 - Immunization history:: Adult Immunizations unknown. - Social history:: Smoking status: Patient denies any tobacco usage or history of. Screenin:00 [facility] ED Fall Risk Assessment (Adult) Score/Fall Risk Level 0 - 2 = Low Risk. Abuse eh3 screen: Denies threats or abuse. Denies injuries from another. Nutritional screening: No deficits noted. Tuberculosis screening: No symptoms or risk factors identified. Assessment: 17:48 Reassessment: No changes from previously documented assessment. Patient and/or family ll1 updated on plan of care and expected duration. Pain level reassessed. 18:00 General: Appears in no apparent distress. uncomfortable, Behavior is cooperative, eh3 anxious. Pain: Complains of pain in head. Neuro: Level of Consciousness is awake, alert, obeys commands, Oriented to person, place, time, situation. Neuro: Reports dizziness, headache weakness. Cardiovascular: Capillary refill < 3 seconds Patient's skin is warm and dry. Respiratory: Airway is patent Respiratory effort is even, unlabored, Respiratory pattern is regular, symmetrical. Derm: Skin is pink, warm \T\ dry. Musculoskeletal: Circulation, motion, and sensation intact. 18:30 Reassessment: Patient appears in no apparent distress at this time. Patient and/or eh3 family updated on plan of care and expected duration. Pain level reassessed. Patient is alert, oriented x 3, equal unlabored respirations, skin warm/dry/pink. 19:30 Reassessment: Patient appears in no apparent distress at this time. Patient and/or eh3 family updated on plan of care and expected duration. Pain level reassessed. Patient is alert, oriented x 3, equal unlabored respirations, skin warm/dry/pink. Vital Signs: 17:19 BP 116 / 77; Pulse 94; Resp 16; Temp 98.8; Pulse Ox 100% ; ko1 18:30 BP 111 / 73; Pulse 73; Resp 18; Pulse Ox 99% on R/A; eh3 19:30 BP 121 / 82; Pulse 73; Resp 18; Pulse Ox 100% on R/A; eh3 [place] Coma Score: 18:30 Eye Response: spontaneous(4). Motor Response: obeys commands(6). Verbal Response: snw oriented(5). Total: 15. ED Course: 16:35 Patient arrived in ED. mg5 16:39 John Rodriguez MD is Attending Physician. sp3 17:22 Triage completed. ko1 17:22 Arm band placed on left wrist. Patient placed in waiting room, on a stretcher, Patient ko1 notified of wait time. 17:44 Patient placed in an exam room, on a stretcher. ll1 18:00 Patient has correct armband on for positive identification. Bed in low position. Call eh3 light in reach. Side rails up X2. Provided Education on: use of call aguilar. Pulse ox on. NIBP on. 18:07 Shanthi Trinidad FNP-C is PHCP. snw 18:23 Charu Durand, RN is Primary Nurse. eh3 20:25 No provider procedures requiring assistance completed. Patient did not have IV access eh3 during this emergency room visit. Administered Medications: 19:00 Drug: hydrOXYzine PO 50 mg PO once Route: PO; 3 20:00 Follow up: Response: No adverse reaction 3 19:00 Drug: LORazepam PO 1 mg PO once; SUBLINGUAL Route: PO; 3 20:00 Follow up: Response: No adverse reaction 3 Medication: 20:25 VIS not applicable for this client. 3 Outcome: 20:14 Discharge ordered by . snw 20:25 Discharged to home ambulatory, with significant other, 3 20:25 Condition: stable 20:25 Discharge instructions given to patient, Instructed on discharge instructions, follow up and referral plans. medication usage, Demonstrated understanding of instructions, follow-up care, medications, Prescriptions given X 1, 20:35 Patient left the ED. 3 Signatures: Shanthi Trinidad, SUPERVISOR FORMING DEPARTMENT-C SUPERVISOR FORMING DEPARTMENT-Csnw Danay Seals, RN RN ll1 John Rodriguez MD MD sp3 Charu Durand RN RN 3 Alida Curry RN RN ko1 Malnea Dickson mg5 Corrections: (The following items were deleted from the chart) 19:49 19:30 BP 115 / 71; Pulse 10bpm; Resp 18bpm; Pulse Ox 100% RA; 3 3
--- NOTE | 2023-02-13 20:15 | EDPHYS ---
Physician Documentation [facility] Name: Araceli Trujillo Age: 37 yrs Sex: Female : 1985 Arrival Date: 02/13/2023 Time: 16:31 Bed 20 Private MD: ED Physician John Rodriguez HPI: 02/13 18:21 This 37 yrs old Female presents to ER via Ambulatory with complaints of Headache, snw Dizziness. 18:21 The patient complains of pain to the entire head "vibrating" like hands feel after snw using bottom bleacher. The patient describes the headache as aching. Onset: The symptoms/episode began/occurred 3 week(s) ago, and became persistent. Associated signs and symptoms: Pertinent positives: sharp pains to chest, low back today. Headache History: Other pt has seen her PCP, ENT, and ED since 01/11/23 when dx with covid. The patient has experienced similar episodes in the past, several times. as noted. Pt just given her 2nd z-pack rx. . Historical: - Allergies: 17:22 Amoxicillin; ko1 17:22 PENICILLINS; ko1 17:22 Soma; ko1 - PMHx: 17:22 None; ko1 - Immunization history:: Adult Immunizations unknown. - Social history:: Smoking status: Patient denies any tobacco usage or history of. ROS: 18:26 Eyes: Negative for injury, pain, redness, and discharge, ENT: Negative for injury, snw pain, and discharge, Neck: Negative for injury, pain, and swelling, 18:26 Respiratory: Negative for shortness of breath, cough, wheezing, and pleuritic chest pain, Abdomen/GI: Negative for abdominal pain, nausea, vomiting, diarrhea, and constipation, 18:26 : Negative for injury, bleeding, discharge, and swelling, MS/Extremity: Negative for injury and deformity, Skin: Negative for injury, rash, and discoloration, Psych: Negative for depression, anxiety, suicide ideation, homicidal ideation, and hallucinations, 18:26 Constitutional: Positive for body aches, malaise, 18:26 Cardiovascular: Positive for chest pain, with movement, 18:26 Back: Positive for pain with movement, 18:26 Neuro: Positive for dizziness, headache, numbness, tingling, Negative for altered mental status, gait disturbance, loss of consciousness, seizure activity, syncope, tremor, Exam: 18:29 Constitutional: This is a well developed, well nourished patient who is awake, alert, snw and in no acute distress. Head/Face: Normocephalic, atraumatic. Eyes: Pupils equal round and reactive to light, extra-ocular motions intact. Lids and lashes normal. Conjunctiva and sclera are non-icteric and not injected. Cornea within normal limits. Periorbital areas with no swelling, redness, or edema. ENT: Nares patent. No nasal discharge, no septal abnormalities noted. Tympanic membranes are normal and external auditory canals are clear. Oropharynx with no redness, swelling, or masses, exudates, or evidence of obstruction, uvula midline. Mucous membranes moist. Neck: Trachea midline, no thyromegaly or masses palpated, and no cervical lymphadenopathy. Supple, full range of motion without nuchal rigidity, or vertebral point tenderness. No Meningismus. Chest/axilla: Normal chest wall appearance and motion. Nontender with no deformity. No lesions are appreciated. Cardiovascular: Regular rate and rhythm with a normal S1 and S2. No gallops, murmurs, or rubs. Normal PMI, no JVD. No pulse deficits. Respiratory: Lungs have equal breath sounds bilaterally, clear to auscultation and percussion. No rales, rhonchi or wheezes noted. No increased work of breathing, no retractions or nasal flaring. Abdomen/GI: Soft, non-tender, with normal bowel sounds. No distension or tympany. No guarding or rebound. No evidence of tenderness throughout. Back: No spinal tenderness. No costovertebral tenderness. Full range of motion. Skin: Warm, dry with normal turgor. Normal color with no rashes, no lesions, and no evidence of cellulitis. MS/ Extremity: Pulses equal, no cyanosis. Neurovascular intact. Full, normal range of motion. Neuro: Awake and alert, GCS 15, oriented to person, place, time, and situation. Cranial nerves II-XII grossly intact. Motor strength 5/5 in all extremities. Sensory grossly intact. Cerebellar exam normal. Normal gait. Psych: Awake, alert, with orientation to person, place and time. Behavior, mood, and affect are within normal limits. Vital Signs: 17:19 BP 116 / 77; Pulse 94; Resp 16; Temp 98.8; Pulse Ox 100% ; ko1 18:30 BP 111 / 73; Pulse 73; Resp 18; Pulse Ox 99% on R/A; eh3 19:30 BP 121 / 82; Pulse 73; Resp 18; Pulse Ox 100% on R/A; eh3 [place] Coma Score: 18:30 Eye Response: spontaneous(4). Motor Response: obeys commands(6). Verbal Response: snw oriented(5). Total: 15. MDM: 17:27 Patient medically screened. sp3 18:30 Differential diagnosis: migraine, tension headache. snw 20:16 Data reviewed: vital signs, nurses notes, lab test result(s), radiologic studies. I snw considered the following discharge prescriptions or medication management in the emergency department Medications were administered in the Emergency Department. See MAR. Counseling: I had a detailed discussion with the patient and/or guardian regarding the historical points, exam findings, and any diagnostic results supporting the discharge/admit diagnosis, the presence of at least one elevated blood pressure reading (>120/80) during this emergency department visit, the need for outpatient follow up, for definitive care, a family practitioner, to return to the emergency department if symptoms worsen or persist or if there are any questions or concerns that arise at home. Response to treatment: the patient's symptoms have markedly improved after treatment. Special discussion: Based on the history and exam findings, there is no indication for further emergent testing or inpatient evaluation. I discussed with the patient/guardian the need to see the primary care provider for further evaluation of the symptoms. 02/13 19:20 Order name: Orthostatics; Complete Time: 20:25 snw Administered Medications: 19:00 Drug: hydrOXYzine PO 50 mg PO once Route: PO; 3 20:00 Follow up: Response: No adverse reaction 3 19:00 Drug: LORazepam PO 1 mg PO once; SUBLINGUAL Route: PO; 3 20:00 Follow up: Response: No adverse reaction 3 Disposition Summary: 02/13/23 20:14 Discharge Ordered Notes: Location: Home snw Condition: Stable snw Diagnosis - Dizziness and giddiness snw Followup: snw - With: Emergency Department - When: As needed - Reason: Worsening of condition Followup: snw - With: Private Physician - When: 2 - 3 days - Reason: Recheck today's complaints, Continuance of care, Re-evaluation by your physician Discharge Instructions: - Discharge Summary Sheet snw - Benign Positional Vertigo snw - Dizziness snw - Rehydration, Adult snw Forms: - Medication Reconciliation Form snw - Thank You Letter snw - Antibiotic Education snw - Prescription Opioid Use snw - Patient Portal Instructions snw - Leadership Thank You Letter snw Prescriptions: - Hydroxyzine HCl 50 mg Oral Tablet - take 1 tablet ORAL route every 8 hours As needed; 20 tablet; Refills: 0, snw Product Selection Permitted Signatures: Shanthi Trinidad, CARTON MAKING MACHINE OPERATOR-C CARTON MAKING MACHINE OPERATOR-Csnw John Rodriguez MD MD sp3 Charu Durand RN RN 3 Alida Curry RN RN ko1
[2023-02-13 21:03] VITALS: TEMP 98.8
[2023-02-13 21:05] VITALS: BP 121/82; O2SAT 100
== END 2023-02-13 20:35 | disposition home or self-care (01) ==
LOC: ER 16:31
DX: R42 Dizziness and giddiness (principal); R51.9 Headache, unspecified
CPT/HCPCS: 99284

== ENCOUNTER 2023-02-26 23:18 | Emergency (ER) | payer SELFPAY ==
[2023-02-27 01:35] LABS: Specific Gravity 1.018 (1.005-1.030)
[2023-02-27] MEDS ORDERED: dexAMETHasone 10 MG/ML VIAL ONE (01:43)
[2023-02-27] MEDS ORDERED: NA CHLORIDE 0.9% 1,000 ML ONE (01:44)
[2023-02-27] MEDS ORDERED: KETOROLAC 30 MG/ML INJ ONE (01:44)
[2023-02-27 01:46] LABS: Specific Gravity 1.018 (1.005-1.030); Urine Bacteria None Seen /HPF (<20); Urine Bilirubin NEGATIVE (Negative); Urine Blood Negative (Negative); Urine Clarity Turbid (Clear); Urine Color Light-Yellow (Yellow); Urine Glucose NEGATIVE (Negative); Urine Mucus Slight /HPF (None Seen); Urine Protein NEGATIVE (Negative); Urine RBC <5 /HPF (None Seen); Urine Urobilinogen Normal (Normal)
[2023-02-27 01:59] LABS: Absolute Lymphocytes (CBC) 2.2 K/uL (0.7-4.9); Hematocrit 37.1 % (36.0-45.0); Lymphocytes % 25.5 % (15.3-44.8); MPV 8.5 fL (7.6-11.3); Platelets 241 thou/uL (152-406); RBC Red Blood Cell Count 3.99 M/uL (3.86-4.86)
[2023-02-27 02:06] LABS: Potassium 3.7 mEq/L (3.5-5.1)
--- NOTE | 2023-02-27 03:16 | ER ---
Nurse's Notes [facility] Name: Araceli Trujillo Age: 37 yrs Sex: Female : 1985 Arrival Date: 02/26/2023 Time: 23:18 Bed 10 Private MD: Diagnosis: Chronic pharyngitis Presentation: 02/26 23:56 Chief complaint: Patient states: right side throat pain of 8,onset February 09 with pf1 swelling to right side of tonsil/tongue,worse in the past 3 days with flush sensation to cheeks,onset today. Patient stated does not know if she is having a reaction to Clindamycin that she started on February 22 that was prescribed by [address] Lechuga. Patient stated was diagnosed with Covid-19 on January 11. Coronavirus screen: Vaccine status: Patient reports being unvaccinated. Client denies travel out of the [place] in the last 14 days. Client presents with at least one sign or symptom that may indicate coronavirus-19. Ebola Screen: Patient negative for fever greater than or equal to 101.5 degrees Fahrenheit, and additional compatible Ebola Virus Disease symptoms. Initial Sepsis Screen: Does the patient meet any 2 criteria? Yes Does the patient have a suspected source of infection? No. Patient's initial sepsis screen is negative. Risk Assessment: Do you want to hurt yourself or someone else? Patient reports no desire to harm self or others. 23:56 Method Of Arrival: Ambulatory pf1 23:56 Acuity: BRITTNI 3 pf1 Historical: - Allergies: 02/27 00:06 Amoxicillin; pf1 00:06 PENICILLINS; pf1 00:06 Soma; pf1 - PMHx: 00:06 None; pf1 - PSHx: 00:06 None; pf1 - Immunization history:: Adult Immunizations up to date, Client reports having NOT received the Covid vaccine. Last tetanus immunization: > 10 years ago Flu vaccine is not up to date. - Social history:: Smoking status: Patient denies any tobacco usage or history of. Patient uses street drugs, marijuana, Patient/guardian denies using alcohol. Screenin:00 [facility] ED Fall Risk Assessment (Adult) History of falling in the last 3 months, pf1 including since admission No falls in past 3 months (0 pts) Confusion or Disorientation No (0 pts) Intoxicated or Sedated No (0 pts) Impaired Gait No (0 pts) Mobility Assist Device Used No (0 pt) Altered Elimination No (0 pt) Score/Fall Risk Level 0 - 2 = Low Risk Oriented to surroundings, Maintained a safe environment, Educated pt \T\ family on fall prevention, incl call for assistance when getting out of bed, Assessed \T\ reinforced patient's understanding of fall precautions, Provided non-skid footwear, Hourly rounding (assess needs \T\ fall precautionary measures) done, Used ambulatory aids as needed (educated on \T\ assisted with), Used gait belt as appropriate. 00:00 Abuse screen: Denies threats or abuse. Nutritional screening: No deficits noted. pf1 Tuberculosis screening: No symptoms or risk factors identified. Assessment: 00:00 General: Appears in no apparent distress. uncomfortable, well groomed, well developed, pf1 Behavior is calm, cooperative, appropriate for age, quiet. 00:00 Pain: Complains of pain in throat Pain currently is 8 out of 10 on a pain scale. pf1 00:00 Neuro: No deficits noted. Level of Consciousness is awake, alert, obeys commands, pf1 Oriented to person, place, time, situation. Cardiovascular: No deficits noted. Capillary refill < 3 seconds Patient's skin is warm and dry. Respiratory: No deficits noted. Airway is patent Respiratory effort is even, unlabored, Respiratory pattern is regular, symmetrical. GI: No deficits noted. No signs and/or symptoms were reported involving the gastrointestinal system. : No deficits noted. No signs and/or symptoms were reported regarding the genitourinary system. EENT: Throat is reddened has enlarged tonsils on right Reports pain in throat. 01:00 Reassessment: Patient appears in no apparent distress at this time. Patient and/or pf1 family updated on plan of care and expected duration. Pain level reassessed. Patient is alert, oriented x 3, equal unlabored respirations, skin warm/dry/pink. 02:00 Reassessment: Patient appears in no apparent distress at this time. Patient and/or pf1 family updated on plan of care and expected duration. Pain level reassessed. Patient is alert, oriented x 3, equal unlabored respirations, skin warm/dry/pink. Patient states feeling better. Patient states symptoms have improved. 03:00 Reassessment: Patient appears in no apparent distress at this time. Patient and/or pf1 family updated on plan of care and expected duration. Pain level reassessed. Patient is alert, oriented x 3, equal unlabored respirations, skin warm/dry/pink. Patient states feeling better. Patient states symptoms have improved. Vital Signs: 02/26 23:56 BP 135 / 100; Pulse 94; Resp 18; Temp 97.5; Pulse Ox 100% on R/A; Weight 68.04 kg; pf1 Height 5 ft. 7 in. ; Pain 8/10; 02/27 00:30 BP 124 / 76; Pulse 89; Resp 16; Pulse Ox 100% ; pf1 01:30 BP 114 / 82; Pulse 90; Resp 16; Pulse Ox 100% ; pf1 02:30 BP 118 / 77; Pulse 80; Resp 16; Pulse Ox 99% ; Pain 2/10; pf1 02/26 23:56 Body Mass Index 23.49 (68.04 kg, 170.18 cm) pf1 02/26 23:56 Pain Scale: Adult pf1 02:30 Pain Scale: Adult pf1 ED Course: 02/26 23:22 Patient arrived in ED. gm2 23:23 Norm Osei PA is PHCP. cp 23:23 Norm Andre MD is Attending Physician. cp 02/27 00:00 Patient has correct armband on for positive identification. Bed in low position. Call pf1 light in reach. 00:00 Arm band placed on right wrist. pf1 00:06 Triage completed. pf1 01:26 COVID-19 SARS RT PCR Sent. pf1 01:26 Influenza Screen (a \T\ B) Sent. pf1 01:26 Urinalysis W/Microscopic Sent. pf1 01:26 PREGU Sent. pf1 01:26 Strep Sent. pf1 01:40 No provider procedures requiring assistance completed. Inserted saline lock: 22 gauge pf1 in right antecubital area, using aseptic technique. Blood collected. 01:43 BMP Sent. pf1 01:43 CBC with Diff Sent. pf1 01:43 Strep Sent. pf1 01:43 [place] Screen Profile Sent. pf1 02:32 CT Soft Tissue Neck W/contr In Process Unspecified. EDMS 03:13 Awilda Mccormack MD is Referral Physician. cp 03:25 IV discontinued, intact, bleeding controlled, No redness/swelling at site. Pressure pf1 dressing applied. 03:25 Provided Education on: prescriptions . pf1 Administered Medications: 01:40 Drug: NS 0.9% IV 1000 ml IV at 1 bolus Per protocol; 1000 mL bolus Route: IV; Rate: 1 pf1 bolus; Site: right antecubital; 02:50 Follow up: Response: No adverse reaction; Marked relief of symptoms; IV Status: pf1 Completed infusion; IV Intake: 1000ml 01:50 Drug: Ketorolac IVP 15 mg IVP once Route: IVP; Site: right antecubital; pf1 02:50 Follow up: Response: No adverse reaction; Marked relief of symptoms pf1 01:50 Drug: Decadron - Dexamethasone IVP 10 mg IVP once Route: IVP; Site: right antecubital; pf1 02:50 Follow up: Response: No adverse reaction; Marked relief of symptoms pf1 Medication: 03:25 VIS not applicable for this client. pf1 Intake: 02:50 IV: 1000ml; Total: 1000ml. pf1 Outcome: 03:15 Discharge ordered by MD. cp 03:25 Discharged to home ambulatory, with family, pf1 03:25 Condition: improved 03:25 Discharge instructions given to patient, family, Instructed on discharge instructions, follow up and referral plans. Demonstrated understanding of instructions, follow-up care, medications, Prescriptions given X 2, 03:29 Patient left the ED. pf1 Signatures: Dispatcher [employer] EDMS Norm Osei PA PA cp Finley, Pamala, RN RN pf1 Codi Buck gm2 Corrections: (The following items were deleted from the chart) 01:13 1208 23:56 Acuity: BRITTNI 4 pf1 pf1 02/27 03:12 00:00 Pain: Complains of pain in throat Pain pf1 pf1 03:13 00:00 Pain: Complains of pain in throat Pain pf1 pf1
--- NOTE | 2023-02-27 03:16 | EDPHYS ---
Physician Documentation [facility] Name: Araceli Trujillo Age: 37 yrs Sex: Female : 1985 Arrival Date: 02/26/2023 Time: 23:18 Bed 10 Private MD: ED Physician Norm Andre HPI: 02/27 01:10 This 37 yrs old Female presents to ER via Ambulatory with complaints of Flu Symptoms, cp Sore Throat, Fever. 01:10 The patient presents with sore throat, dysphagia, of both solids and liquids, right cp side of throat feels swollen, started January and has worsened over past [address] Lechuga prescribed clindamycin and steroids. Steroid seemed to help. Tested positive for COVID-19 in December. 01:10 The patient describes throat pain as constant. Modifying factors: the symptoms are cp aggravated by swallowing. Associated signs and symptoms: Pertinent positives: dysphagia, Pertinent negatives cough, fever, headache. Historical: - Allergies: 00:06 Amoxicillin; pf1 00:06 PENICILLINS; pf1 00:06 Soma; pf1 - PMHx: 00:06 None; pf1 - PSHx: 00:06 None; pf1 - Immunization history:: Adult Immunizations up to date, Client reports having NOT received the Covid vaccine. Last tetanus immunization: > 10 years ago Flu vaccine is not up to date. - Social history:: Smoking status: Patient denies any tobacco usage or history of. Patient uses street drugs, marijuana, Patient/guardian denies using alcohol. ROS: 01:15 Constitutional: Negative for fever, cp 01:15 Eyes: Negative for injury, pain, redness, and discharge, cp 01:15 ENT: Positive for difficulty swallowing, sore throat, Negative for drainage from ear(s), ear pain, difficulty swallowing, difficulty handling secretions, 01:15 Cardiovascular: Negative for chest pain, edema, palpitations, 01:15 Respiratory: Negative for cough, shortness of breath, wheezing, 01:15 Abdomen/GI: Negative for abdominal pain, nausea, vomiting, and diarrhea, 01:15 Neuro: Negative for altered mental status, dizziness, headache, weakness, 01:15 All other systems are negative, Exam: 01:20 Constitutional: The patient appears in no acute distress, alert, awake, non-toxic, well cp developed, well nourished, 01:20 Head/Face: Normocephalic, atraumatic. cp 01:20 Eyes: Periorbital structures: appear normal, Conjunctiva: normal, no exudate, no injection, Sclera: no appreciated abnormality, Lids and lashes: appear normal, bilaterally, 01:20 ENT: External ear(s): are unremarkable, Ear canal(s): are normal, clear, TM's: dullness, bilaterally, Nose: is normal, Mouth: Lips: moist, Oral mucosa: pink and intact, moist, Posterior pharynx: Airway: no evidence of obstruction, patent, Tonsils: no enlargement, no exudate, swelling, that is mild, erythema, is not appreciated, exudate, is not appreciated, Voice: is normal, 01:20 Neck: ROM/movement: is normal, is supple, without pain, no range of motions limitations, no meningismus, no nuchal rigidity, moderate tenderness right anterior lateral neck with no gross swelling and/or enlarged nodes palpated, 01:20 Chest/axilla: Inspection: normal, 01:20 Cardiovascular: Rate: normal, Rhythm: regular, 01:20 Respiratory: the patient does not display signs of respiratory distress, Respirations: normal, no use of accessory muscles, no retractions, labored breathing, is not present, Breath sounds: are clear throughout, no decreased breath sounds, no stridor, no wheezing, 01:20 Abdomen/GI: Exam negative for discomfort, distension, guarding, Inspection: abdomen appears normal, 01:20 Skin: no rash present. Vital Signs: 02/26 23:56 BP 135 / 100; Pulse 94; Resp 18; Temp 97.5; Pulse Ox 100% on R/A; Weight 68.04 kg; pf1 Height 5 ft. 7 in. ; Pain 8/10; 12 00:30 BP 124 / 76; Pulse 89; Resp 16; Pulse Ox 100% ; pf1 01:30 BP 114 / 82; Pulse 90; Resp 16; Pulse Ox 100% ; pf1 02:30 BP 118 / 77; Pulse 80; Resp 16; Pulse Ox 99% ; Pain 2/10; pf1 02/26 23:56 Body Mass Index 23.49 (68.04 kg, 170.18 cm) pf1 02/26 23:56 Pain Scale: Adult pf1 02:30 Pain Scale: Adult pf1 MDM: 00:08 Patient medically screened. 03:15 Data reviewed: vital signs, nurses notes, lab test result(s), radiologic studies, CT cp scan, and as a result, I will discharge patient. 03:15 I considered the following discharge prescriptions or medication management in the emergency department Medications were administered in the Emergency Department. See MAR. Counseling: I had a detailed discussion with the patient and/or guardian regarding the historical points, exam findings, and any diagnostic results supporting the discharge/admit diagnosis, lab results, radiology results, the need for outpatient follow up, an ENT specialist, to return to the emergency department if symptoms worsen or persist or if there are any questions or concerns that arise at home. Response to treatment: the patient's symptoms have mildly improved after treatment, and as a result, I will discharge patient. 02/27 01:04 Order name: Grand Screen Profile; Complete Time: 02:57 02/27 02:57 Interpretation: Reviewed. 02/27 01:04 Order name: Strep; Complete Time: 02:57 02/27 02:58 Interpretation: Reviewed. 02/27 01:04 Order name: Urinalysis W/Microscopic; Complete Time: 01:59 02/27 03:08 Interpretation: Normal except: [facility] Turbid. 02/27 01:04 Order name: PREGU; Complete Time: 01:59 02/27 01:04 Order name: Influenza Screen (a \T\ B); Complete Time: 02:57 02/27 01:04 Order name: COVID-19 SARS RT PCR; Complete Time: 02:57 02/27 01:04 Order name: CBC with Diff; Complete Time: 02:57 02/27 01:04 Order name: BMP; Complete Time: 02:57 02/27 02:57 Interpretation: Normal except: GFR 79. 02/27 02:04 Order name: Throat Culture EDMS 02/27 01:04 Order name: CT Soft Tissue Neck W/contr 02/27 01:14 Order name: IV Start; Complete Time: 01:43 pf1 Administered Medications: 01:40 Drug: NS 0.9% IV 1000 ml IV at 1 bolus Per protocol; 1000 mL bolus Route: IV; Rate: 1 pf1 bolus; Site: right antecubital; 02:50 Follow up: Response: No adverse reaction; Marked relief of symptoms; IV Status: pf1 Completed infusion; IV Intake: 1000ml 01:50 Drug: Ketorolac IVP 15 mg IVP once Route: IVP; Site: right antecubital; pf1 02:50 Follow up: Response: No adverse reaction; Marked relief of symptoms pf1 01:50 Drug: Decadron - Dexamethasone IVP 10 mg IVP once Route: IVP; Site: right antecubital; pf1 02:50 Follow up: Response: No adverse reaction; Marked relief of symptoms pf1 Disposition Summary: 02/27/23 03:15 Discharge Ordered Notes: Location: Home cp Problem: an ongoing problem cp Symptoms: have improved cp Condition: Stable cp Diagnosis - Chronic pharyngitis cp Followup: cp - With: Awilda Mccormack MD - When: 1 week - Reason: Recheck today's complaints Discharge Instructions: - Discharge Summary Sheet cp - Pharyngitis cp Forms: - Medication Reconciliation Form cp - Thank You Letter cp - Antibiotic Education cp - Prescription Opioid Use cp - Patient Portal Instructions cp - Leadership Thank You Letter cp Prescriptions: - Pepcid 20 mg Oral Tablet - take 1 tablet ORAL route every 12 hours for 10 days; 20 tablet; Refills: 0, cp Product Selection Permitted - Medrol ([place]) 4 mg Oral Tablets, Dose Pack - take 1 tablet ORAL route as directed - follow package instructions; 1 packet; cp Refills: 0, Product Selection Permitted Signatures: Dispatcher [employer] EDNorm Kamara PA PA cp Finley, Pamala RN RN pf1 Corrections: (The following items were deleted from the chart) 11:54 01:40 Constitutional: Negative for fever, cp cp
[2023-02-27 04:09] VITALS: BP 118/77; O2SAT 99
--- NOTE | 2023-03-01 15:43 | RAD REPORT ---
EXAM DESCRIPTION: CT - Soft Tissue Neck W/Contr - 02/27/2023 7:25 am CLINICAL HISTORY: 37 years, Female, Swelling;Sore throat COMPARISON: None TECHNIQUE: Soft tissue protocol CT of the neck using intravenous contrast. All CT scans at this facility use dose modulation, iterative reconstruction, and/or weight based dosi ng when appropriate to reduce radiation dose to as low as reasonably achievable. FINDINGS: Sinuses: Visualized paranasal sinuses and mastoid air cells are clear. No acute soft tissue edema. No retropharyngeal edema. Salivary glands: Within normal limits. Pharynx: Epiglottis is normal. No airway compromise. No suspicious enhancing lesions. Mucosal surfaces are symmetric. No definitive enlarged tonsils and/or evidence for significant perito nsillar abscess. Nodes: No cervical adenopathy. Bones: No acute bone findings. Vascular: Within normal limits. Thyroid: Within normal limits. Lung apices are clear. IMPRESSION: Unremarkable CT of the neck with contrast. No definitive evidence for peritonsillar absc ess. Electronically signed by: Gurinder Parker MD 02/27/2023 02:51 AM MANAGER FRAUD Due to temporary technical issues with the PACS/Fluency reporting system, reports are being signed by the in house radiologist without review as a courtesy to ensure prompt reporting. The interpreting r adiologist is fully responsible for the content of the report.
== END 2023-02-27 03:29 | disposition home or self-care (01) ==
LOC: ER 23:18
DX: J31.2 Chronic pharyngitis (principal); Z11.52 Encounter for screening for COVID-19; Z88.0 Allergy status to penicillin; Z88.8 Allergy status to other drugs, medicaments and biological substances
CPT/HCPCS: 36415; 70491; 80048; 81001; 81025; 85025; 86308; 87070; 87081; 87635; 87804; 96361; 96374; 96375; 99284; J1100; J7030; Q9967

== ENCOUNTER 2024-02-24 06:55 | Emergency (ER) | payer SELFPAY ==
--- NOTE | 2024-02-24 07:31 | EDPHYS ---
Physician Documentation [facility] Name: Araceli Trujillo Age: 38 yrs Sex: Female : 1985 Arrival Date: 02/24/2024 Time: 06:55 Bed 8 Private MD: ED Physician John Rodriguez HPI: 02/23 07:26 This 38 yrs old Female presents to ER via Ambulatory with complaints of Abscess. sp3 07:26 38-year-old female with no past medical history presents with abscess to the right sp3 buttock she states has been there for "1 year" but has gotten worse over the last few days. She has an appointment with her PCP in a week but states that she wanted to get evaluated here first. She denies any other symptoms including fever, chest pain, shortness of breath, abdominal pain, neurological symptoms, bleeding or any other signs or symptoms on ROS at this time.. 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 - Infectious Disease History:: Denies. - Social history:: Smoking status: unknown. ROS: 07:27 Constitutional: Negative for fever, chills, and weight loss, Eyes: Negative for injury, sp3 pain, redness, and discharge, Neck: Negative for injury, pain, and swelling, Cardiovascular: Negative for chest pain, palpitations, and edema, Respiratory: Negative for shortness of breath, cough, wheezing, and pleuritic chest pain, Abdomen/GI: Negative for abdominal pain, nausea, vomiting, diarrhea, and constipation, Back: Negative for injury and pain, MS/Extremity: Negative for injury and deformity, Neuro: Negative for headache, weakness, numbness, tingling, and seizure, Psych: Negative for depression, anxiety, suicide ideation, homicidal ideation, and hallucinations, Allergy/Immunology: Negative for hives, rash, and allergies, Endocrine: Negative for neck swelling, polydipsia, polyuria, polyphagia, and marked weight changes, Hematologic/Lymphatic: Negative for swollen nodes, abnormal bleeding, and unusual bruising, 07:27 All other systems are negative, Exam: 07:27 Constitutional: This is a well developed, well nourished patient who is awake, alert, sp3 and in no acute distress. Head/Face: Normocephalic, atraumatic. Eyes: Pupils equal round and reactive to light, extra-ocular motions intact. Lids and lashes normal. Conjunctiva and sclera are non-icteric and not injected. Cornea within normal limits. Periorbital areas with no swelling, redness, or edema. Neck: Trachea midline, no thyromegaly or masses palpated, and no cervical lymphadenopathy. Supple, full range of motion without nuchal rigidity, or vertebral point tenderness. No Meningismus. Chest/axilla: Normal chest wall appearance and motion. Nontender with no deformity. No lesions are appreciated. Cardiovascular: Regular rate and rhythm with a normal S1 and S2. No gallops, murmurs, or rubs. Normal PMI, no JVD. No pulse deficits. Respiratory: Lungs have equal breath sounds bilaterally, clear to auscultation and percussion. No rales, rhonchi or wheezes noted. No increased work of breathing, no retractions or nasal flaring. Abdomen/GI: Soft, non-tender, with normal bowel sounds. No distension or tympany. No guarding or rebound. No evidence of tenderness throughout. Back: No spinal tenderness. No costovertebral tenderness. Full range of motion. MS/ Extremity: Pulses equal, no cyanosis. Neurovascular intact. Full, normal range of motion. Neuro: Awake and alert, GCS 15, oriented to person, place, time, and situation. Cranial nerves II-XII grossly intact. Motor strength 5/5 in all extremities. Sensory grossly intact. Cerebellar exam normal. Normal gait. Psych: Awake, alert, with orientation to person, place and time. Behavior, mood, and affect are within normal limits. 07:27 Skin: 2 cm x 2 cm abscess right buttock not currently ready for I\\T\\D. Mild erythema noted. Area is not fluctuant. . Vital Signs: 07:13 BP 135 / 81; Pulse 75; Resp 17; Temp 98.2; Pulse Ox 100% ; Weight 72.12 kg; Height 5 ap3 ft. 7 in. ; 07:13 Body Mass Index 24.90 (72.12 kg, 170.18 cm) ap3 MDM: 07:06 Medical Screening Exam initiated sp3 07:28 Data reviewed: vital signs, nurses notes. ED course: 38-year-old female with abscess to sp3 the right buttock not ready for I\\T\\D. Will place on antibiotics and warm compress instructions have been given. Follow-up with PCP as needed. Patient is not cellulitic, septic or in any distress. Vital signs are normal.. Administered Medications: No medications were administered Disposition Summary: 02/24/24 07:30 Discharge Ordered Notes: Location: Home sp3 Condition: Stable sp3 Diagnosis - Cutaneous abscess sp3 Followup: sp3 - With: Private Physician - When: Upon discharge from the Emergency Department - Reason: Recheck today's complaints, Continuance of care Discharge Instructions: - Discharge Summary Sheet sp3 - Skin Abscess sp3 Forms: - Medication Reconciliation Form sp3 - Antibiotic Education sp3 - Prescription Opioid Use sp3 - Patient Portal Instructions sp3 - Leadership Thank You Letter sp3 Prescriptions: - Clindamycin HCl 300 mg Oral Capsule - take 1 capsule ORAL route every 6 hours for 10 days; 40 capsule; Refills: 0, sp3 Product Selection Permitted - Bactrim DS 800-160 mg Oral Tablet - take 1 tablet ORAL route every 12 hours for 10 days; 20 tablet; Refills: 0, sp3 Product Selection Permitted Signatures: Adina Power RN RN ap3 John Rodriguez MD MD sp3
--- NOTE | 2024-02-24 07:31 | ER ---
Nurse's Notes [facility] Name: Araceli Trujillo Age: 38 yrs Sex: Female : 1985 Arrival Date: 02/24/2024 Time: 06:55 Bed 8 Private MD: Diagnosis: Cutaneous abscess Presentation: 02/23 07:13 Chief complaint: Patient states: she has a bump on the right "butt cheek" for approx ap3 one year and the pain has gotten worse over the past couple of days. Coronavirus screen: At this time, the client does not indicate any symptoms associated with coronavirus-19. Ebola Screen: No symptoms or risks identified at this time. Initial Sepsis Screen: Does the patient meet any 2 criteria? No. Patient's initial sepsis screen is negative. Does the patient have a suspected source of infection? No. Patient's initial sepsis screen is negative. Risk Assessment: Do you want to hurt yourself or someone else? Patient reports no desire to harm self or others. Onset of symptoms is unknown. 07:13 Method Of Arrival: Ambulatory ap3 07:13 Acuity: BRITTNI 3 ap3 Triage Assessment: 07:15 General: Appears uncomfortable, Behavior is calm, cooperative, appropriate for age. ap3 Pain: Complains of pain in right gluteus laurent. Neuro: Level of Consciousness is awake, alert, obeys commands, Oriented to person, place, time, situation, Appropriate for age. Cardiovascular: Patient's skin is warm and dry. Respiratory: Airway is patent Respiratory effort is even, unlabored, Respiratory pattern is regular, symmetrical. 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 - Infectious Disease History:: Denies. - Social history:: Smoking status: unknown. Screenin:16 [facility] ED Fall Risk Assessment (Adult) History of falling in the last 3 months, ap3 including since admission No falls in past 3 months (0 pts) Confusion or Disorientation No (0 pts) Intoxicated or Sedated No (0 pts) Impaired Gait No (0 pts) Mobility Assist Device Used No (0 pt) Altered Elimination No (0 pt) Score/Fall Risk Level 0 - 2 = Low Risk Oriented to surroundings, Maintained a safe environment, Educated pt \\T\\ family on fall prevention, incl call for assistance when getting out of bed, Assessed \\T\\ reinforced patient's understanding of fall precautions, Hourly rounding (assess needs \\T\\ fall precautionary measures) done, Used ambulatory aids as needed (educated on \\T\\ assisted with), Used gait belt as appropriate. Abuse screen: Denies threats or abuse. Nutritional screening: No deficits noted. Tuberculosis screening: No symptoms or risk factors identified. Vital Signs: 07:13 BP 135 / 81; Pulse 75; Resp 17; Temp 98.2; Pulse Ox 100% ; Weight 72.12 kg; Height 5 ap3 ft. 7 in. ; 07:13 Body Mass Index 24.90 (72.12 kg, 170.18 cm) ap3 ED Course: 06:58 Patient arrived in ED. [email or web address] 07:04 John Rodriguez MD is Attending Physician. sp3 07:13 Adina Power RN is Primary Nurse. ap3 07:15 Triage completed. ap3 07:16 Arm band placed on right wrist. ap3 07:16 Patient has correct armband on for positive identification. Placed in gown. Bed in low ap3 position. Call light in reach. Side rails up X 1. 07:36 Provided Education on: discharge. ap3 07:36 No provider procedures requiring assistance completed. Patient did not have IV access ap3 during this emergency room visit. Administered Medications: No medications were administered Medication: 07:37 VIS not applicable for this client. ap3 Outcome: 07:30 Discharge ordered by . sp3 07:36 Discharged to home ambulatory, with family, ap3 07:36 Condition: good 07:36 Discharge instructions given to patient, family, Instructed on discharge instructions, follow up and referral plans. medication usage, Demonstrated understanding of instructions, follow-up care, medications, Prescriptions given X 2, 07:37 Patient left the ED. ap3 Signatures: Adina Power RN RN ap3 John Rodriguez MD MD sp3 Rayna Saeed [email or web address]
[2024-02-24 13:33] VITALS: BP 135/81; TEMP 98.2; O2SAT 100
== END 2024-02-24 07:37 | disposition home or self-care (01) ==
LOC: ER 06:55
DX: L02.31 Cutaneous abscess of buttock (principal)
CPT/HCPCS: 99283